=== PATIENT | female | born 1955 | race Caucasian/White ===

== ENCOUNTER → 2017-01-29 | Outpatient (CLI) | payer OTHER ==
[2017-01-29 13:38] LABS: Anion Gap 9 mmol/L; Blood Urea Nitrogen 14 mg/dL (7-17); Calcium 9.4 mg/dL (8.4-10.2); Carbon Dioxide 26 mmol/L (22-30); Chloride 104 mmol/L (98-107); Glucose 237 mg/dL (74-99); Non-African American GFR(MDRD) >60 (>60 ml/min/1.73 sqM); Potassium 4.9 mmol/L (3.5-5.1); Sodium 139 mmol/L (137-145)
[2017-01-29 15:13] LABS: Hemoglobin A1C 10.4 % (4.2-6.1)
== END | disposition home or self-care (01) ==
LOC: LABWHC1 12:12
PROVIDERS: ATTEND Internal Medicine
DX: E11.65 Type 2 diabetes mellitus with hyperglycemia (principal)
CPT/HCPCS: 36415; 80048; 83036

== ENCOUNTER → 2017-03-28 | Outpatient (CLI) | payer OTHER ==
[2017-03-28 13:24] LABS: Hemoglobin A1C 10.5 % (4.2-6.1)
[2017-03-28 13:26] LABS: Anion Gap 12 mmol/L; Blood Urea Nitrogen 14 mg/dL (7-17); Carbon Dioxide 26 mmol/L (22-30); Chloride 102 mmol/L (98-107); Glucose 107 mg/dL (74-99); Non-African American GFR(MDRD) 54 (>60 ml/min/1.73 sqM); Potassium 4.1 mmol/L (3.5-5.1); Sodium 140 mmol/L (137-145)
== END | disposition home or self-care (01) ==
LOC: LABWHC1 12:15
PROVIDERS: ATTEND Internal Medicine
DX: E11.65 Type 2 diabetes mellitus with hyperglycemia (principal)
CPT/HCPCS: 36415; 80048; 83036

== ENCOUNTER → 2017-10-13 | Outpatient (CLI) | payer SELFPAY ==
--- NOTE | 2017-10-14 14:28 | MM ---
Reason for exam: screening (asymptomatic). Last mammogram was performed 1 year and 4 months ago. History: Patient is postmenopausal. Physical Findings: A clinical breast exam by your physician is recommended on an annual basis and results should be correlated with mammographic findings. MG Screening Mammo w CAD Bilateral CC and MLO view(s) were taken. Prior study comparison: June 20, 2016, mammogram, performed at [facility]. March 02, 2015, mammogram, performed at [facility]. There are scattered fibroglandular densities. There is chronic nodularity in the right breast. No significant changes when compared with prior studies. ASSESSMENT: Negative, BI-RAD 1 RECOMMENDATION: Routine screening mammogram of both breasts in 1 year.
== END | disposition home or self-care (01) ==
LOC: RADMAMWWP 12:59
PROVIDERS: ATTEND Internal Medicine
DX: Z12.31 Encounter for screening mammogram for malignant neoplasm of breast (principal)
CPT/HCPCS: 77067

== ENCOUNTER 2017-10-28 17:33 | Inpatient (IN) | payer OTHER ==
[2017-10-28 17:55] LABS: Glucose,Whole Blood 183 mg/dL (75-99)
[2017-10-28] MEDS ORDERED: ONDANSETRON 4 MG/2 ML VIAL IVP STA ×2 (18:04→18:05)
[2017-10-28] MEDS ORDERED: MORPHINE SULFATE 4 MG/ML SYRINGE IVP STA ×3 (18:04→20:54)
--- NOTE | 2017-10-28 18:19 | ED ---
General Adult HPI - General Chief complaint: Extremity Injury, Lower Stated complaint: Leg injury/500 pound bale of hay fell on her Time Seen by Provider: 10/28/17 17:57 Source: patient, family, RN notes reviewed Mode of arrival: wheelchair Limitations: physical limitation - History of Present Illness Initial comments: Chief complaint history of present illness is a 62-year-old female brought in by her . the patient and her and several others were loading very heavy large bridget of hay 1 fell from a height of 20 feet are more pushing her forward and causing injury to her left rib cage and right lower leg. Patient denies any loss of consciousness. No head or neck pain. No upper extremity pain. Denies shortness of breath but which takes deep breath or rib hurts. Denies any spinal pain. Denies numbness or tingling down her legs. There was no loss of consciousness. The patient has a heavy work boot , which will need to be cut off for examination. patient be given us permission to cut her boot. He was cutting such a way that he can be possibly repaired. The patient is already receiving IV pain medication4 mg of morphine and Zofran. - Related Data Home Medications Medication Instructions Recorded Confirmed Aspirin 325 mg PO DAILY 10/04/14 10/28/17 Metoprolol Tartrate [Lopressor] 25 mg PO DAILY 10/04/14 10/28/17 metFORMIN HCL [Glucophage] 1,000 mg PO DAILY 10/04/14 10/28/17 Insulin Glargine,Hum.rec.anlog 30 unit SQ HS 10/28/17 10/28/17 [Basaglar Kwikpen U-100] Omeprazole [PriLOSEC] 20 mg PO AC-BID 10/28/17 10/28/17 PARoxetine HCL [Paxil] 40 mg PO DAILY 10/28/17 10/28/17 Allergies Allergy/AdvReac Type Severity Reaction Status Date / Time No Known Allergies Allergy Verified 10/28/17 18:42 Review of Systems ROS Statement: Those systems with pertinent positive or pertinent negative responses have been documented in the HPI. review of systems. No headache or visual acuity changes denies neck or spinal pain. Has discomfort to her left rib cage which does increase with deep breathing. No abdominal pain denies nausea or vomiting. Denies pelvic pain. Denies knee pain. She has pain to her distal right tib-fib. There was no loss of consciousness. Neurologically intact. All systems were reviewed. Past medical problems insulin-dependent diabetes mellitus TIA years ago and hypertension. Patient surgeries include tubal ligation. Family history significant for a father with prostate cancer in her mother skin cancer. Patient denies any ALLERGIES she quit smoking drinking 15 years ago. ROS Other: All systems not noted in ROS Statement are negative. Past Medical History Past Medical History: Diabetes Mellitus, GERD/Reflux, Hypertension Additional Past Medical History / Comment(s): PROB W/ EATING, SWALLOWING SOME FOODS D/T ESOPHAGEAL STRICTURE R/T SCAR TISSUE FROM GERD. History of Any Multi-Drug Resistant Organisms: None Reported Past Surgical History: Tubal Ligation Additional Past Surgical History / Comment(s): EGD X 3 last-12/08/14 Past Anesthesia/Blood Transfusion Reactions: Motion Sickness Past Psychological History: Depression Smoking Status: Former smoker Past Alcohol Use History: None Reported Past Drug Use History: None Reported - Past Family History Father Family Medical History: Cancer General Exam - General Exam Comments Initial Comments: General: The patient is awake and alert, she had a large developing a come down pushing her forward, complaining of left rib pain and distal right tib-fib pain.. Eye: Pupils are equal, round and reactive to light, extra-ocular movements are intact ; there is normal conjunctiva bilaterally. No signs of icterus. Ears, nose, mouth and throat: There are moist mucous membranes and no oral lesions. Neck: The neck is supple, there is no tenderness . Cardiovascular: There is a regular rate and rhythm. No murmur, rub or gallop is appreciated. Respiratory: patient complains of left sided rib pain. No spinal pain. Lungs are clear to auscultation at this time. Gastrointestinal: Soft, non-distended, non-tender abdomen without masses or organomegaly noted. There is no rebound or guarding present. No CVA tenderness. Bowel sounds are unremarkable. Back: There is no tenderness to palpation in the midline. There is no obvious deformity. No rashes noted. patient is not complaining of back pain chest left rib cage pain at this time. Musculoskeletal: patient's boot was removed showing a dislocation right ankle. Neurovascular status appears to be intact to the foot. Neurological: no evidence of any neuro deficits. Skin: Skin is warm and dry and no rashes or lesions are noted. Limitations: physical limitation Course Vital Signs 10/28/17 10/28/17 10/28/17 17:38 18:31 19:00 Temperature 98.1 F Pulse Rate 104 H 91 102 H Respiratory 20 18 18 Rate Blood Pressure 152/67 158/68 165/74 O2 Sat by Pulse 98 96 100 Oximetry 10/28/17 10/28/17 10/28/17 19:05 19:10 19:14 Temperature Pulse Rate 100 98 104 H Respiratory 18 18 18 Rate Blood Pressure 163/73 171/78 186/79 O2 Sat by Pulse 100 100 100 Oximetry 10/28/17 19:17 Temperature Pulse Rate 101 H Respiratory 18 Rate Blood Pressure 136/60 O2 Sat by Pulse 98 Oximetry Procedures - Procedures Initial comment: Procedure; conscious sedation. Permission was obtained for conscious sedation. The patient was told risks and benefits. a timeout was taken the right dislocated ankle was idetified. At bedside with the physician , 2 nurses and respiratory. Patient was monitored, on oxygen. Ambu bag in crash cart at bedside. 16 mg of etomidate was administered. Within several minutes the patient was sedated. The comminuted right dislocated ankle was reduced. It was then immobilized with OCL splints. The first for by 32nd for by 30 sugar tong fashion. Neurovascular foot maintained intact before and after procedure. Patient was monitored until she was fully awake and able to answer questions. And was going to go for x-rays or post reduction and the rest of her x-rays. Total length of conscious sedation was [address] Liao Medical Decision Making - Medical Decision Making medical decision making; the patient is here because a large they'll of hay fell forcing her forward. Chief complaint is left rib cage pain and right ankle pain. There is no loss of consciousness. Trauma examination from head to toe is done. Patient received IV pain medication within 10 minutes of around emergency room. X-rays were performed including a chest x-ray and it was reported by radiology as a cardiac silhouette is not enlarged. The mediastinal pleura silhouettes are unremarkable. The skeletal structures are intact without focal findings. Soft tissues are unremarkable patient process. As read by Dr. Dorian moran radiologist reviewed the x-rays of the ankle and his findings ; imaging included the ankle, hindfoot, midfoot. There are complex fractures involving the distal tibia and fibula, with overriding with complete dislocation at the tibiotalar articulation. Impression complex fracture dislocation. As read by Dr. Master Mcmanus Postreduction x-ray of the ankle shows trimalleolar fracture with comminuted fragments.radiologist reviewed the x-ray his findings are postreduction 3 views. Imaging was obtained through a cast which limits visualization somewhat. There is marked interval improvement in the alignment pattern at the ankle. As read by Dr. Master Mcmanus Left rib series was done and reviewed by radiologist his findings are there is no fracture or malalignment. There is no pneumothorax. No pleural effusion. Soft tissues and lungs are unremarkable. No acute process X-ray of the pelvis was done reviewed by radiologist his findings as no fracture or malalignment. Soft tissues are unremarkable. Impression no acute process. As read by Dr. Master Mcmanus I discussed the case Dr. Gomez height off on-call orthopedic surgeon. Patient be admitted his service for observation for pain management. Further evaluation after admission. - Lab Data Lab Results 10/28/17 Range/Units 17:51 POC Glucose (mg/dL) 183 H (75-99) mg/dL POC Glu Grinder Needle Tip ID Sabrina Whitaker Disposition Clinical Impression: Closed fracture dislocation of right ankle Disposition: ADMITTED IP TO THIS HOSP Condition: Serious Referrals: Adalberto Sarah MD [Primary Care Provider] - 1-2 days
[2017-10-28] MEDS ORDERED: SODIUM CHLORIDE 0.9% 500 ML IV ONE (18:29)
[2017-10-28] MEDS ORDERED: SODIUM CHLORIDE 0.9% 1,000 ML IV SCH ×2 (18:30→18:45)
[2017-10-28] MEDS ORDERED: ETOMIDATE 2 MG/ML 10 ML VIAL IVP STA (18:30)
[2017-10-28] MEDS ORDERED: ONDANSETRON 4 MG/2 ML VIAL IVP PRN ×2 (18:41→20:57)
[2017-10-28] MEDS ORDERED: NALOXONE 0.4 MG/ML 1 ML VIAL IV PRN ×2 (18:41→20:57)
[2017-10-28] MEDS ORDERED: ACETAMINOPHEN TAB 325 MG TAB PO PRN (18:41)
--- NOTE | 2017-10-28 18:44 | XR ---
EXAMINATION: XR chest 1V portable DATE AND TIME: 10/28/2017 6:32 PM ORDERING PROVIDER: Matthew Liao MD CLINICAL INDICATION: Pain TECHNIQUE: AP upright portable COMPARISON: None. DESCRIPTION: EKG leads noted. The lungs are clear. The pleural spaces are negative. The cardiac silhouette is not enlarged. The mediastinal and pleural silhouettes are unremarkable. The skeletal structures are intact without focal findings. The soft tissues are unremarkable. IMPRESSION: NO ACUTE PROCESS.
--- NOTE | 2017-10-28 18:55 | XR ---
PROCEDURE: XR tibia fibula RT DATE AND TIME: 10/28/2017 6:32 PM REFERRING PHYSICIAN: Matthew Liao MD CLINICAL INDICATION: [facility], Pain TECHNIQUE: Department protocol. COMPARISON: None FINDINGS: 4 views were obtained from the knee to the ankle. The knee is unremarkable. The proximal an d mid tibia and fibula are intact. There is a fracture dislocation at the right ankle. IMPRESSION: COMPLEX FRACTURE DISLOCATION AT THE RIGHT ANKLE.
--- NOTE | 2017-10-28 18:59 | XR ---
PROCEDURE: XR ankle complete RT, 3 views DATE AND TIME: 10/28/2017 6:50 PM REFERRING PHYSICIAN: Matthew Liao MD CLINICAL INDICATION: [facility], Pain TECHNIQUE: Department protocol. COMPARISON: None FINDINGS: Imaging included the ankle, hindfoot, and midfoot. There are complex fractures involving th e distal tibia and fibula, with override and with complete dislocation at the tibiotalar articulation . IMPRESSION: COMPLEX FRACTURE DISLOCATION
--- NOTE | 2017-10-28 20:06 | XR ---
PROCEDURE: XR pelvis AP view DATE AND TIME: 10/28/2017 7:59 PM REFERRING PHYSICIAN: Matthew Liao MD CLINICAL INDICATION: [facility], trauma exam TECHNIQUE: Department protocol. COMPARISON: None FINDINGS: There is no fracture or malalignment. The soft tissues are unremarkable. IMPRESSION: NO ACUTE PROCESS.
--- NOTE | 2017-10-28 20:09 | XR ---
PROCEDURE: XR ankle complete RT, 3 views DATE AND TIME: 10/28/2017 7:55 PM REFERRING PHYSICIAN: Matthew Liao MD CLINICAL INDICATION: [facility], Post reduction TECHNIQUE: Department protocol. COMPARISON: Same day ankle radiographs. FINDINGS: Post reduction 3 views. Imaging was obtained through a cast which limits visualization some what. There is marked interval improvement in the alignment pattern at the ankle. IMPRESSION: Postreduction 3 views.
--- NOTE | 2017-10-28 20:10 | XR ---
PROCEDURE: XR ribs LT 4 views DATE AND TIME: 10/28/2017 7:59 PM REFERRING PHYSICIAN: Matthew Liao MD CLINICAL INDICATION: [facility], Pain TECHNIQUE: Department protocol. COMPARISON: None FINDINGS: There is no fracture or malalignment. There is no pneumothorax. No pleural effusion. The so ft tissues and lungs are unremarkable. IMPRESSION: NO ACUTE PROCESS.
[2017-10-28] MEDS ORDERED: FAMOTIDINE 20 MG TAB PO SCH (21:00)
[2017-10-28 21:31] LABS: Basophils # (A) 0.1 k/uL (0-0.2); Basophils % (A) 1 %; Eosinophils # (A) 0.6 k/uL (0-0.7); Eosinophils % (A) 7 %; HCT 36.9 % (34.0-46.0); HGB 12.5 gm/dL (11.4-16.0); Lymphocytes # (A) 2.1 k/uL (1.0-4.8); Lymphocytes % (A) 24 %; MCH 28.6 pg (25.0-35.0); MCHC 33.9 g/dL (31.0-37.0); MCV 84.5 fL (80.0-100.0); Mean Platelet Volume 8.1; Monocytes # (A) 0.5 k/uL (0-1.0); Monocytes % (A) 5 %; Neutrophils # (A) 5.3 k/uL (1.3-7.7); Neutrophils % (A) 62 %; Platelet Count 352 k/uL (150-450); RBC 4.37 m/uL (3.80-5.40); RDW 14.2 % (11.5-15.5); WBC 8.6 k/uL (3.8-10.6)
[2017-10-28 21:50] LABS: Albumin 4.3 g/dL (3.5-5.0); Calcium 9.7 mg/dL (8.4-10.2); Potassium 4.5 mmol/L (3.5-5.1); Total Bilirubin 0.4 mg/dL (0.2-1.3); Total Protein 7.2 g/dL (6.3-8.2)
[2017-10-28 21:55] VITALS: BMI 29.9
[2017-10-28] MEDS: FAMOTIDINE 20 MG TAB PO SCH ×2 (22:11→23:42)
[2017-10-28] MEDS: SODIUM CHLORIDE 0.9% 1,000 ML IV SCH (23:45)
[2017-10-29] MEDS: MORPHINE SULFATE 4 MG/ML SYRINGE IV PRN ×3 (00:10→10:40)
[2017-10-29] MEDS ORDERED: metFORMIN 500 MG TAB PO SCH (07:30)
[2017-10-29 08:07] LABS: Glucose,Whole Blood 168 mg/dL (75-99)
[2017-10-29] MEDS: FAMOTIDINE 20 MG TAB PO SCH (08:11)
[2017-10-29] MEDS: PARoxetine 20 MG TAB PO SCH (08:11)
[2017-10-29] MEDS: INSULIN ASPART 100 UNIT/ML 1 ML 10 ML VIAL SQ SCH ×3 (08:11→21:30)
--- NOTE | 2017-10-29 08:38 | P.HPOR ---
History of Present Illness H&P Date: 10/29/17 This is a 62-year-old female who is admitted for right ankle injury. Patient states she was moving large bridget of hay on 10/28/2017 and one fell on top of her causing her to fall. Patient states after this she was unable to get up on her own and her family drove her to the emergency room. Patient sustained a fracture dislocation of the right ankle which was reduced in the emergency room and splinted. Today patient states her pain is under control. Patient does complain of some pain to the left side ribs when she takes deep breaths. Patient denies any fever/chills, pain of the head or neck, numbness, weakness, tingling, abdominal pain, shortness of breath or chest pain. Review of Systems See HPI. Past Medical History Past Medical History: Diabetes Mellitus, GERD/Reflux, Hypertension Additional Past Medical History / Comment(s): PROB W/ EATING, SWALLOWING SOME FOODS D/T ESOPHAGEAL STRICTURE R/T SCAR TISSUE FROM GERD. History of Any Multi-Drug Resistant Organisms: None Reported Past Surgical History: Tubal Ligation Additional Past Surgical History / Comment(s): EGD X 3 last-12/08/14 Past Anesthesia/Blood Transfusion Reactions: Motion Sickness Past Psychological History: Depression Smoking Status: Former smoker Past Alcohol Use History: None Reported Past Drug Use History: None Reported - Past Family History Father Family Medical History: Cancer Medications and Allergies Home Medications Medication Instructions Recorded Confirmed Type Aspirin 325 mg PO DAILY 10/04/14 10/28/17 History Metoprolol Tartrate [Lopressor] 25 mg PO DAILY 10/04/14 10/28/17 History metFORMIN HCL [Glucophage] 1,000 mg PO DAILY 10/04/14 10/28/17 History Insulin Glargine,Hum.rec.anlog 30 unit SQ HS 10/28/17 10/28/17 History [Basaglar Kwikpen U-100] Omeprazole [PriLOSEC] 20 mg PO AC-BID 10/28/17 10/28/17 History PARoxetine HCL [Paxil] 40 mg PO DAILY 10/28/17 10/28/17 History Allergies Allergy/AdvReac Type Severity Reaction Status Date / Time No Known Allergies Allergy Verified 10/28/17 18:42 Physical Examination On exam patient is alert and oriented 3 and in no acute distress. Right lower extremity with splint clean, dry and intact. Capillary refill is normal at less than 2 seconds. Sensation intact. Neurovascular status and circulatory status are intact. There is no tenderness to palpation of the head, neck, bilateral upper extremities, or left lower extremity. Patient has had some pain of the left- side ribs. Results X-rays of the right ankle show a fracture dislocation of the right ankle. Postreduction films show improved alignment of right ankle fracture. X-rays of the right tib-fib show complex fracture dislocation of the right ankle. X-rays of the pelvis are negative for any fracture. X-rays of the left ribs are negative for fracture. Chest x-ray is negative for any acute process. - Labs Labs: Abnormal Lab Results - Last 24 Hours (Table) 10/28/17 10/28/17 10/29/17 Range/Units 17:51 20:51 08:00 BUN 18 H (7-17) mg/dL Creatinine 1.14 H (0.52-1.04) mg/dL Glucose 175 H (74-99) mg/dL POC Glucose (mg/dL) 183 H 168 H (75-99) mg/dL H & H 10/28/17 Range/Units 20:51 Hgb 12.5 (11.4-16.0) gm/dL Hct 36.9 (34.0-46.0) % Result Diagrams: 10/28/17 20:51 10/28/17 20:51 Assessment and Plan (1) Closed fracture dislocation of right ankle Current Visit: Yes Status: Acute Code(s): S82.891A - OTH FRACTURE OF RIGHT LOWER LEG, INIT FOR CLOS FX SNOMED Code(s): 929355376 Plan: #1. Keep splint clean, dry and intact. #2. Patient is to be NPO. #3. Patient is to remain nonweightbearing to the right lower extremity. #4. Keep right lower extremity elevated for swelling. #5. Awaiting medical clearance #6. ORIF of right ankle scheduled for today pending medical clearance and consent.
[2017-10-29] MEDS ORDERED: METOPROLOL TARTRATE 25 MG TAB PO SCH ×2 (09:00)
--- NOTE | 2017-10-29 09:26 | P.CONS ---
History of Present Illness - Reason for Consult Consult date: 10/29/17 preop medical clearance Requesting physician: Jason Mijares - Chief Complaint right ankle fracture - History of Present Illness 62-year-old female with past history of hypertension, diabetes mellitus, and GERD. 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 This was not associated with any nausea vomiting, dizziness, lightheadedness, any palpitations, no open wounds or bleeding that were visible initially. Patient was wearing large heavy work boots which could not removed at the field. Patient family drove the patient to the hospital where she was diagnosed with fracture dislocation of the right ankle. Closed reduction was done in the ED under conscious sedation. Patient is admitted to orthopedics who requested the consult for preop medical clearance. Patient denies any recent history of congestive heart failure symptoms, heart attacks, palpitations, syncope, or seizures. Patient does have history of diabetes, and recalls remote history of possible TIA. Denies any history of coronary artery disease, CK D, or CHF. 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 Patient describes her health as in good status. Currently patient laying comfortable in bed not in any acute distress still reports some sharp left thoracic back pain with deep breaths and movement. She also reports pain in her right ankle but controlled for now. Review of Systems Constitutional: Patient denies fever, denies chills, denies night sweating, denies significant weight changes Eyes: Patient denies visual changes, denies eye pain ENT: Patient denies ear pain, denies rhinorrhea, denies sore throat Cardiovascular: Patient denies chest pain, denies exertional dyspnea, denies peripheral leg edema, denies orthopnea, denies paroxysmal nocturnal dyspnea Respiratory:Patient denies cough, denies wheezing, denies shortness of breath Gastrointestinal: Patient denies diarrhea, denies constipation, denies nausea , denies vomiting, denies abdominal pain Genitourinary: Patient denies dysuria, denies hematuria, denies changes in urinary habits, denies genital lesions Musculoskeletal: Patient denies muscle pain, patient reports left thoracic back pain since the injury, and right ankle pain Psychiatric: Patient denies changes in mood or memory, denies suicidal ideation, denies anxiety Endocrine: Patient denies heat intolerance, denies cold intolerance, denies excessive thirst, denies polyuria Neurological: Patient denies focal neurologic deficits, denies weakness, denies numbness, denies tingling Hem/Lymphatic: Patient denies bleeding tendency, denies bruising, denies swollen lymph glands Allergic/Immun: Patient denies recent allergic reactions Skin: Patient denies rashes, denies pruritis, denies ulcers Past Medical History Past Medical History: Diabetes Mellitus, GERD/Reflux, Hypertension Additional Past Medical History / Comment(s): PROB W/ EATING, SWALLOWING SOME FOODS D/T ESOPHAGEAL STRICTURE R/T SCAR TISSUE FROM GERD. History of Any Multi-Drug Resistant Organisms: None Reported Past Surgical History: Tubal Ligation Additional Past Surgical History / Comment(s): EGD X 3 last-12/08/14 Past Anesthesia/Blood Transfusion Reactions: Motion Sickness Past Psychological History: Depression Smoking Status: Former smoker Past Alcohol Use History: None Reported Past Drug Use History: None Reported - Past Family History Father Family Medical History: Cancer Medications and Allergies Home Medications Medication Instructions Recorded Confirmed Type Aspirin 325 mg PO DAILY 10/04/14 10/28/17 History Metoprolol Tartrate [Lopressor] 25 mg PO DAILY 10/04/14 10/28/17 History metFORMIN HCL [Glucophage] 1,000 mg PO DAILY 10/04/14 10/28/17 History Insulin Glargine,Hum.rec.anlog 30 unit SQ HS 10/28/17 10/28/17 History [Basaglar Kwikpen U-100] Omeprazole [PriLOSEC] 20 mg PO AC-BID 10/28/17 10/28/17 History PARoxetine HCL [Paxil] 40 mg PO DAILY 10/28/17 10/28/17 History Allergies Allergy/AdvReac Type Severity Reaction Status Date / Time No Known Allergies Allergy Verified 10/28/17 18:42 Physical Exam Vitals: Vital Signs Temp Pulse Pulse Resp BP BP Pulse Ox 10/29/17 07:00 99.2 F 110 H 18 138/63 96 10/29/17 00:50 98.8 F 109 H 16 120/75 96 10/28/17 21:30 97.0 F L 112 H 17 163/83 94 L 10/28/17 21:25 105 H 20 132/60 91 L 10/28/17 20:53 99 18 133/60 97 10/28/17 19:17 101 H 18 136/60 98 10/28/17 19:14 104 H 18 186/79 100 10/28/17 19:10 98 18 171/78 100 10/28/17 19:05 100 18 163/73 100 10/28/17 19:00 102 H 18 165/74 100 10/28/17 18:31 91 18 158/68 96 10/28/17 17:38 98.1 F 104 H 20 152/67 98 Intake and Output 10/28/17 10/29/17 10/29/17 22:59 06:59 14:59 Intake Total 650 Balance 650 Intake: Amount of Fluid Infused ( 650 ml) Other: # Voids 1 Weight 81.647 kg Constitutional: No acute distress, conversant, pleasant Eyes: Anicteric sclerae, moist conjunctiva, no lid-lag Pupils equal round reactive to light ENMT: NC/AT Oropharynx clear, no erythema, exudates Patient has large kissing tonsils Neck: Supple, FROM, no masses, or JVD No carotid bruits No thyromegaly Lungs: Clear to auscultation Clear to percussion Normal respiratory effort, no accessory muscle use Cardiovascular: Heart sounds tachycardic but regular rhythm , audible S1- S2 no added sounds No murmurs, gallops, or rubs No peripheral edema Abdominal: Soft Nontender, no guarding, rebound or rigidity Abdomen moving with respiration Normoactive bowel sounds No hepatomegaly, No splenomegaly No palpable mass No abdominal wall hernia noted Skin: Normal temperature, tone, texture, turgor No induration No subcutaneous nodules No rash, lesions No ulcers Extremities: Right lower extremity and surgical dressing and splint. Capillary refill is immediate over the right big toe No digital cyanosis No clubbing Pedal pulses intact and symmetrical Radial pulses intact and symmetrical No calf tenderness Psychiatric: Alert and oriented to person, place and time Appropriate affect fair judgment Neuro Muscles Strength 5/5 in all 4 extremities (except for limited exam over the right lower extremity due to splint) Sensation to light touch grossly present throughout Cranial nerves II-XII grossly intact No focal sensory deficits Lymphatics: no palpable cervical or supraclavicular , or inguinal lymph nodes Results CBC & Chem 7: 10/28/17 20:51 10/28/17 20:51 Labs: Abnormal Lab Results - Last 24 Hours (Table) 10/28/17 10/28/17 10/29/17 Range/Units 17:51 20:51 08:00 BUN 18 H (7-17) mg/dL Creatinine 1.14 H (0.52-1.04) mg/dL Glucose 175 H (74-99) mg/dL POC Glucose (mg/dL) 183 H 168 H (75-99) mg/dL Assessment and Plan (1) Closed fracture dislocation of right ankle Narrative/Plan: Due to accidental injury Management per orthopedics Pain control Current Visit: Yes Status: Acute Code(s): S82.891A - OTH FRACTURE OF RIGHT LOWER LEG, INIT FOR CLOS FX SNOMED Code(s): 044398082 (2) Diabetes mellitus Narrative/Plan: Continue with insulin sliding scale Hold oral hypoglycemics Resume long-acting insulin postop Check A1c Current Visit: Yes Status: Acute Code(s): E11.9 - TYPE 2 DIABETES MELLITUS WITHOUT COMPLICATIONS SNOMED Code(s): 09054148 (3) Hypertension Narrative/Plan: Blood pressure is controlled for now Continue with metoprolol Current Visit: Yes Status: Acute Code(s): I10 - ESSENTIAL (PRIMARY) HYPERTENSION SNOMED Code(s): 88424292 (4) GERD (gastroesophageal reflux disease) Narrative/Plan: Continue with PPI Current Visit: Yes Status: Acute Code(s): K21.9 - GASTRO-ESOPHAGEAL REFLUX DISEASE WITHOUT ESOPHAGITIS SNOMED Code(s): 957723158 (5) DVT prophylaxis Narrative/Plan: SCDs for now pending surgical intervention Pharmacologic anticoagulation prophylaxis postop per orthopedic Current Visit: Yes Status: Acute Code(s): KBJ7388 - SNOMED Code(s): 791933161 (6) Depression Narrative/Plan: continue paxil Current Visit: Yes Status: Acute Code(s): F32.9 - MAJOR DEPRESSIVE DISORDER , SINGLE EPISODE, UNSPECIFIED SNOMED Code(s): 47495582 Plan: Preoperative medical clearance This is 62-year-old female with history of hypertension and diabetes mellitus, presented due to accidental injury resulted in severe pain in her right leg later found to have dislocated fracture of the right ankle. Patient denies any recent history of heart attack, congestive heart failure symptoms, palpitations , syncope, seizures, arrhythmia. Patient denies any history of CK D, CHF, or CAD. She does have history of diabetes mellitus, and possible remote TIA questionable. 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 Patient is planned to go for orthopedic surgery for ORIF of her right ankle dislocated fracture. This is of intermediate risk. Patient overall medical history puts her at low perioperative cardiovascular risk for complications but acceptable and can proceed to surgery, patient to continue metoprolol. Hold oral hypoglycemic agents. Patient labs were reviewed and unremarkable, except for slightly elevated creatinine at 1.1, continue with IV fluid hydration with normal saline EKG is still pending we'll review preop. Thank you for allowing us to participate in the care of this patient. Do not hesitate to contact us with questions. Someone can be reached from the [facility] hospitalist group at all hours of the day at [phone].
[2017-10-29] MEDS: SODIUM CHLORIDE 0.9% 1,000 ML IV SCH (09:33)
[2017-10-29 11:50] LABS: Glucose,Whole Blood 140 mg/dL (75-99)
[2017-10-29 15:23] LABS: Glucose,Whole Blood 127 mg/dL (75-99)
[2017-10-29] MEDS ORDERED: IV FLUID CONTINUATION 1,000 ML IV ONE (15:32)
[2017-10-29] MEDS ORDERED: ONDANSETRON 4 MG/2 ML VIAL IVP ONE (15:49)
[2017-10-29] MEDS ORDERED: DEXAMETHASONE SOD PHOSPHATE 10 MG/ML 1 ML VIAL IV ONE (15:52)
[2017-10-29] MEDS ORDERED: DIAZEPAM 5 MG TAB PO PRN ×2 (16:12)
[2017-10-29] MEDS ORDERED: hydrOXYzine PAMOATE 25 MG CAP PO PRN (16:12)
[2017-10-29] MEDS ORDERED: MAGNESIUM HYDROXIDE 2,400 MG/10 ML CUP PO PRN (16:12)
[2017-10-29] MEDS ORDERED: NALOXONE 0.4 MG/ML 1 ML VIAL IV PRN (16:12)
[2017-10-29] MEDS ORDERED: ceFAZolin IN SWFI 2 GM/20 ML SYRINGE IVP STA (16:19)
[2017-10-29] MEDS ORDERED: LIDOCAINE 1% INJ 10MG/ML (20 ML MDV) ONE (17:04)
[2017-10-29] MEDS ORDERED: MIDAZOLAM 2 MG/2 ML VIAL ONE (17:04)
[2017-10-29] MEDS ORDERED: fentaNYL (PF) 50 MCG/ML 2 ML AMP ONE (17:04)
[2017-10-29] MEDS ORDERED: PROPOFOL 10 MG/ML 20 ML VIAL IV ONE (17:04)
[2017-10-29] MEDS ORDERED: PHENYLEPHRINE-0.9% NACL SYG 1 MG/10 ML SYRINGE ONE (17:04)
[2017-10-29] MEDS ORDERED: MORPHINE ORAL SOLN 10 MG/5 ML CUP PO PRN (17:08)
[2017-10-29] MEDS ORDERED: LACTATED RINGERS 1,000 ML IV ONE (17:30)
[2017-10-29] MEDS ORDERED: ceFAZolin 1,000 MG in SODIUM CHLORIDE 0.9% 1,000 ML IRRIGATION ONE (17:35)
--- NOTE | 2017-10-29 18:07 | P.OP ---
Date of Procedure: 10/29/17 Preoperative Diagnosis: Trimalleolar fracture dislocation right ankle Postoperative Diagnosis: Trimalleolar fracture dislocation right ankle Procedure(s) Performed: Open reduction and internal fixation of the right distal fibula and medial malleolus Implants: Synthes small fragment set Anesthesia: spinal Surgeon: Jason Mijares Folder Gluer Operator #1: Domi Saunders Estimated Blood Loss (ml): 20 Pathology: none sent Condition: stable Disposition: PACU Indications for Procedure: This is a 62-year-old female that slipped and sustained a fracture dislocation of her right ankle yesterday. She was seen by the emergency department, and had her ankle fracture dislocation reduced and splinted. Patient was admitted to the hospital for observation. After reviewing the x-rays and discussing the treatment options with the patient, I recommended open reduction and internal fixation of right distal fibula and medial malleolus. Informed consent was obtained. Operative Findings: The operative findings are consistent with a trimalleolar fracture dislocation of the right ankle. Description of Procedure: The patient was seen and evaluated in the preoperative area. The consent was reviewed and the operative site was marked with a skin marker. Patient was then brought to the operating room and given 2 g of Ancef by the anesthesia department. A general anesthetic was then administered by the anesthesia department. Tourniquet was placed on the upper thigh and the lower extremity was then prepped and draped in the usual sterile fashion. A universal timeout was then performed which confirmed the patient's name, surgical site, ALLERGIES, and consent. The lower extremity was then exsanguinated, and the tourniquet inflated to 250 mmHg. A standard lateral incision was then performed over the distal fibula with the skin and subcutaneous tissue sharply incised with the incision centered over the fracture site. Tissues were carefully dissected down to the fracture site. The fracture hematoma was evacuated and the fracture was then reduced with bone reducing clamps. Fluoroscopic x-rays confirmed reduction of the fracture and orthodox of the ankle mortise. Next, an anterior to posterior lag screw was then placed by over drilling the proximal hole. After the anterior to posterior lag screw was placed, the bone clamp was able to be removed and the fracture was held stable. Next, a one third semitubular plate was pre-bent for the patient's anatomy, and placed on the lateral aspect of the distal fibula. Screws were then were placed both proximally and distally in order to fixate the plate to the distal fibula. After all the screws then placed, final fluoroscopic x-rays confirmed reduction of the fracture, orthodox of the ankle mortise, and placement of the plate and screws. Attention was then directed to the medial malleolus. An incision was made over the fracture site with care taken to avoid the saphenous vein. The fracture was readily visualized, and reduced with a K wire. A 4.0 cannulated screws then placed over the K wire. Again, fluoroscopic x-rays confirmed reduction of the fracture and placement of the screw. The tourniquet was then released and hemostasis was obtained. The incision site was then irrigated with antibiotic solution. Wound was then closed with 2- 0 Vicryl for the subcutaneous tissue and negin for the skin. 20 cc of quarter percent plain Marcaine were then injected about the surgical site. Sterile dressings were applied, and a well-padded and molded posterior splint was placed. Patient was then transported to the recovery room in stable condition. The auction assistant ELI Emmanuel was required due to the complexity of the surgery and the need for a skilled information technology assistant.
--- NOTE | 2017-10-29 18:18 | FL ---
EXAMINATION TYPE: FL guidance operating room, XR ankle limited RT DATE OF EXAM: 10/29/2017 CLINICAL HISTORY: Right ankle fracture. TECHNIQUE: Fluoroscopy. Intraoperative limited views right ankle. COMPARISON: Right ankle x-ray from yesterday.. FINDINGS: Fluoroscopic guidance was provided during open reduction internal fixation procedure perfo rmed by Dr. Mijares. A total of 16 seconds of fluoroscopic time was utilized during the procedure a nd 2 spot intraoperative images are acquired. Intraoperative images acquired show placement of single screw through fracture deformity medial malle olus and lateral fixating plate with additional fixating screws through fracture deformity of lateral malleolus. Satisfactory alignment is seen after reduction and fixation. IMPRESSION: As Above.
[2017-10-29] MEDS ORDERED: DILTIAZEM 125 MG in SODIUM CHLORIDE 0.9% 100 ML IV SCH (19:15)
[2017-10-29 20:22] LABS: Glucose,Whole Blood 185 mg/dL (75-99)
[2017-10-29 20:44] LABS: Basophils % (A) 0 %; Eosinophils # (A) 0.1 k/uL (0-0.7); Eosinophils % (A) 1 %; HCT 36.1 % (34.0-46.0); HGB 11.2 gm/dL (11.4-16.0); Hypochromasia Slight; Lymphocytes # (A) 0.6 k/uL (1.0-4.8); Lymphocytes % (A) 9 %; MCH 27.3 pg (25.0-35.0); MCHC 31.1 g/dL (31.0-37.0); MCV 87.8 fL (80.0-100.0); Mean Platelet Volume 8.1; Monocytes # (A) 0.2 k/uL (0-1.0); Monocytes % (A) 2 %; Neutrophils # (A) 6.6 k/uL (1.3-7.7); Neutrophils % (A) 88 %; Platelet Count 238 k/uL (150-450); RBC 4.11 m/uL (3.80-5.40); RDW 14.4 % (11.5-15.5); WBC 7.5 k/uL (3.8-10.6)
[2017-10-29 20:45] LABS: Glucose,Whole Blood 198 mg/dL (75-99)
[2017-10-29 21:32] LABS: Hemoglobin A1C 6.9 % (4.0-6.0)
[2017-10-30] MEDS: INSULIN ASPART 100 UNIT/ML 1 ML 10 ML VIAL SQ SCH ×5 (00:13→23:21)
--- NOTE | 2017-10-30 00:22 | P.CNNES ---
History of Present Illness Consult date: 10/29/17 Reason for Consult: Patient admitted with right ankle fracture and leg weakness. 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 Apparently a bale of hay weighing over 500 pounds fell forwards and pushed her from behind. This caused her to fall forwards and causing some injury to the left side of her rib cage. She also landed onto her right lower foot and was trapped under the bale of hay. She was extracted and was complaining of severe right ankle pain. She did not have any loss of consciousness and did not strike her head. The patient did not expanse any lightheadedness or dizziness following this accident. She was wearing very large heavy work boots which could not be removed at the field. The family drove her to the hospital immediately and she was diagnosed with fracture dislocation of the right ankle. Closed reduction was completed in the emergency room under conscious sedation. She was admitted to the orthopedic service and was taken to the OR this evening for surgical treatment. She did show x-ray findings for a trimalleolar fracture with comminuted fragments. Patient underwent successful orthopedic surgery. Apparently while postoperative today she developed new onset of atrial fibrillation. She was transferred to the selective care floor for further management. The patient apparently did not experience any weakness in her left leg. She does complain of left rib pain and discomfort in the thoracic region of the spine. She didn't undergo a series of x-rays in the emergency room but there was no x-ray done of the thoracic spine. We would recommend plain x-ray of the thoracic spine with 2 views to be done tomorrow morning. Patient's neurological examination at this time is nonfocal. She has no evidence of radiculopathy in the either leg at this time. She is being treated for new onset of atrial fibrillation and we will await further recommendations from cardiology. Neurology is now been consulted for further evaluation and recommendations. Review of Systems Constitutional: Denies chills, Denies fever Eyes: denies blurred vision, denies pain Ears, nose, mouth and throat: Denies headache, Denies sore throat Cardiovascular: Denies chest pain, Denies shortness of breath Respiratory: Denies cough Gastrointestinal: Denies abdominal pain, Denies diarrhea, Denies nausea, Denies vomiting Genitourinary: Denies dysuria, Denies hematuria Musculoskeletal: Denies myalgias Integumentary: Denies pruritus, Denies rash Neurological: Reports paresthesias, Denies numbness, Denies weakness Psychiatric: Denies anxiety, Denies depression Endocrine: Denies fatigue, Denies weight change Past Medical History Past Medical History: Diabetes Mellitus, GERD/Reflux, Hypertension Additional Past Medical History / Comment(s): PROB W/ EATING, SWALLOWING SOME FOODS D/T ESOPHAGEAL STRICTURE R/T SCAR TISSUE FROM GERD. History of Any Multi-Drug Resistant Organisms: None Reported Past Surgical History: Tubal Ligation Additional Past Surgical History / Comment(s): EGD X 3 last-12/08/14 Past Anesthesia/Blood Transfusion Reactions: Motion Sickness Past Psychological History: Depression Smoking Status: Former smoker Past Alcohol Use History: None Reported Past Drug Use History: None Reported - Past Family History Father Family Medical History: Cancer Medications and Allergies Home Medications Medication Instructions Recorded Confirmed Type Aspirin 325 mg PO DAILY 10/04/14 10/28/17 History Metoprolol Tartrate [Lopressor] 25 mg PO DAILY 10/04/14 10/28/17 History metFORMIN HCL [Glucophage] 1,000 mg PO DAILY 10/04/14 10/28/17 History Insulin Glargine,Hum.rec.anlog 30 unit SQ HS 10/28/17 10/28/17 History [Basaglar Kwikpen U-100] Omeprazole [PriLOSEC] 20 mg PO AC-BID 10/28/17 10/28/17 History PARoxetine HCL [Paxil] 40 mg PO DAILY 10/28/17 10/28/17 History Allergies Allergy/AdvReac Type Severity Reaction Status Date / Time No Known Allergies Allergy Verified 10/28/17 18:42 Physical Examination - Vital Signs Vital Signs: Vital Signs Temp Pulse Pulse Resp BP Pulse Ox 10/29/17 20:00 105 H 16 134/61 96 10/29/17 19:45 151 H 16 128/72 96 10/29/17 19:30 147 H 16 118/72 96 10/29/17 19:17 150 H 16 124/59 96 10/29/17 19:00 144 H 16 118/59 96 03/07/18 18:45 137 H 16 120/67 96 10/29/17 18:21 97.2 F L 118 H 16 122/59 96 10/29/17 15:23 98.6 F 95 20 138/62 98 10/29/17 15:00 97.8 F 73 17 103/66 95 10/29/17 07:00 99.2 F 110 H 18 138/63 96 10/29/17 00:50 98.8 F 109 H 16 120/75 96 Intake and Output 10/29/17 10/29/17 10/29/17 06:59 14:59 22:59 Intake Total 801 Output Total 200 20 Balance -200 781 Intake: IV 801 Output: Urine 200 Estimated Blood Loss 20 Other: # Voids 1 2 - Constitutional General appearance: average body habitus, cooperative - EENT EENT: PERRL, mucous membranes moist - Respiratory Respiratory: lungs clear, normal breath sounds - Cardiovascular Cardiovascular: regular rate, normal S1, normal S2 Extremities: no peripheral edema bilaterally - Gastrointestinal Gastrointestinal: normoactive bowel sounds - Integumentary Integumentary: normal - Neurologic Cranial nerve examination: PERRL, EOMI, VFF, V1/V2/V3 grossly intact, face symmetric, tongue midline, intact gag reflex, intact corneal reflex, normal palatal elevation Speech examination: intact Sensorimotor examination: intact Motor examination - right side: 4/5: biceps, triceps, wrist flexion, wrist extension, television maintenance man, hip flexors, knee extensors, dorsiflexion Motor examination - left side: 4/5: biceps, triceps, wrist flexion, wrist extension, television maintenance man, hip flexors, knee extensors, dorsiflexion, toe extension (EHL) , plantarflexion Detailed sensory examination: intact Reflex and gait examination: intact Reflexes: 1+: ankle, bicep, knee, tricep - Musculoskeletal Musculoskeletal: no pain - Psychiatric Psychiatric: mood/affect appropriate, cooperative Results - Laboratory Findings CBC and BMP: 10/29/17 20:34 10/28/17 20:51 Abnormal Lab Findings: Abnormal Labs 10/28/17 10/28/17 10/29/17 17:51 20:51 08:00 Hgb Lymphocytes # BUN 18 H Creatinine 1.14 H Glucose 175 H POC Glucose (mg/dL) 183 H 168 H 10/29/17 10/29/17 10/29/17 11:37 15:22 20:19 Hgb Lymphocytes # BUN Creatinine Glucose POC Glucose (mg/dL) 140 H 127 H 185 H 10/29/17 10/29/17 20:34 20:43 Hgb 11.2 L Lymphocytes # 0.6 L BUN Creatinine Glucose POC Glucose (mg/dL) 198 H Assessment and Plan (1) Closed fracture dislocation of right ankle Current Visit: Yes Status: Acute Code(s): S82.891A - OTH FRACTURE OF RIGHT LOWER LEG, INIT FOR CLOS FX SNOMED Code(s): 418226482 (2) Thoracic spine pain Current Visit: Yes Status: Acute Code(s): M54.6 - PAIN IN THORACIC SPINE SNOMED Code(s): 849578995 (3) New onset atrial fibrillation Current Visit: Yes Status: Acute Code(s): I48.91 - UNSPECIFIED ATRIAL FIBRILLATION SNOMED Code(s): 43134494 (4) Diabetes mellitus Current Visit: Yes Status: Acute Code(s): E11.9 - TYPE 2 DIABETES MELLITUS WITHOUT COMPLICATIONS SNOMED Code(s): 36746434 Plan: This patient is a 62-year-old female who 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 She sustained a forward fall and injured her left rib cage as well as her right ankle. She was taken to the hospital where she was found to have evidence of a acute fracture involving the right ankle. It was a trimalleolar fracture with comminuted fragments. She was taken to the operating room by orthopedic surgery late this evening. Apparently in postop care she developed new onset of atrial fibrillation and was transferred to selective care floor for close monitoring. Neurology was consulted for evaluation of leg weakness. Patient has no weakness in either leg on examination today. She is complaining of some left- sided thoracic pain. We've recommended plain x-ray of the thoracic spine to be done tomorrow. Neurological examination otherwise is nonfocal at this time. We will await further recommendations from orthopedic surgery regarding her right ankle fracture. Her overall prognosis at this time remains guarded. We will continue close neurological follow-up for this patient. Time with Patient: Greater than 30
[2017-10-30] MEDS: ASPIRIN 325 MG TAB PO SCH ×3 (00:28→23:21)
[2017-10-30] MEDS: METOPROLOL TARTRATE 25 MG TAB PO SCH ×3 (00:29→23:22)
[2017-10-30] MEDS: SENNOSIDES-DOCUSATE SODIUM 1 EACH TAB PO SCH ×2 (00:29→23:22)
[2017-10-30] MEDS: HYDROcodone/APAP 7.5-325MG 1 EACH TAB PO PRN ×4 (00:30→23:24)
[2017-10-30] MEDS: ceFAZolin IN SWFI 2 GM/20 ML SYRINGE IVP SCH ×2 (00:43→09:49)
[2017-10-30 05:53] LABS: Glucose,Whole Blood 211 mg/dL (75-99)
[2017-10-30] MEDS: SODIUM CHLORIDE 0.9% 1,000 ML IV SCH ×4 (06:30→09:51)
[2017-10-30] MEDS: PANTOPRAZOLE 40 MG TABLET PO SCH (06:42)
[2017-10-30 06:54] LABS: Basophils % (A) 0 %; Eosinophils % (A) 0 %; HCT 30.5 % (34.0-46.0); HGB 10.1 gm/dL (11.4-16.0); Lymphocytes # (A) 0.7 k/uL (1.0-4.8); Lymphocytes % (A) 10 %; MCH 28.6 pg (25.0-35.0); MCHC 33.1 g/dL (31.0-37.0); MCV 86.6 fL (80.0-100.0); Monocytes # (A) 0.4 k/uL (0-1.0); Monocytes % (A) 5 %; Neutrophils % (A) 84 %; Platelet Count 228 k/uL (150-450); RBC 3.53 m/uL (3.80-5.40); RDW 14.1 % (11.5-15.5); WBC 7.1 k/uL (3.8-10.6)
[2017-10-30 07:16] LABS: Calcium 8.5 mg/dL (8.4-10.2); Potassium 4.8 mmol/L (3.5-5.1)
[2017-10-30] MEDS: PARoxetine 20 MG TAB PO SCH (07:51)
--- NOTE | 2017-10-30 08:13 | P.PN ---
Subjective Progress Note Date: 10/30/17 This is a 62-year-old female who is status post ORIF of right ankle. This is postoperative day #1. Patient states she has some pain to the right lower extremity, but this is tolerable. Patient developed atrial fibrillation last night and was transferred to [facility]. Patient states she may have experienced symptoms of atrial fibrillation one other time years ago. Today patient states she is feeling well. Patient states the left-side ribs continue to be painful. Patient denies any shortness of breath, chest pain, abdominal pain, fever/chills, numbness or weakness. Objective - Vital Signs Vital signs: Vital Signs Temp 98.0 F 10/30/17 04:00 Pulse 82 10/30/17 08:00 Resp 18 10/30/17 08:00 BP 118/56 10/30/17 07:47 Pulse Ox 92 L 10/30/17 07:47 Intake & Output 10/29/17 10/30/17 10/30/17 18:59 06:59 18:59 Intake Total 801 Output Total 220 200 Balance 581 -200 Weight 89.5 kg Intake: IV 801 Output: Urine 200 200 Estimated Blood Loss 20 Other: Voiding Method Bedpan Bedpan # Voids 2 2 - Exam On exam patient is sitting up comfortably in bed in no acute distress. Patient is alert and oriented 3. Splint to right lower extremity is clean, dry and intact. Patient is able to move the toes without pain or difficulty. Capillary refill is normal at less than 2 seconds. Sensation intact. Neurovascular status and circulatory status are intact. - Labs CBC & Chem 7: 10/30/17 06:12 10/30/17 06:12 Labs: Abnormal Lab Results - Last 24 Hours (Table) 10/28/17 10/29/17 10/29/17 Range/Units 06:00 08:00 11:37 RBC (3.80-5.40) m/uL Hgb (11.4-16.0) gm/dL Hct (34.0-46.0) % Lymphocytes # (1.0-4.8) k/uL Glucose (74-99) mg/dL POC Glucose (mg/dL) 168 H 140 H (75-99) mg/dL Hemoglobin A1c 6.9 H (4.0-6.0) % 10/29/17 10/29/1718 Range/Units 15:22 20:19 20:34 RBC (3.80-5.40) m/uL Hgb 11.2 L (11.4-16.0) gm/dL Hct (34.0-46.0) % Lymphocytes # 0.6 L (1.0-4.8) k/uL Glucose (74-99) mg/dL POC Glucose (mg/dL) 127 H 185 H (75-99) mg/dL Hemoglobin A1c (4.0-6.0) % 10/29/17 10/30/17 10/30/17 Range/Units 20:43 05:50 06:12 RBC 3.53 L (3.80-5.40) m/uL Hgb 10.1 L (11.4-16.0) gm/dL Hct 30.5 L (34.0-46.0) % Lymphocytes # 0.7 L (1.0-4.8) k/uL Glucose (74-99) mg/dL POC Glucose (mg/dL) 198 H 211 H (75-99) mg/dL Hemoglobin A1c (4.0-6.0) % 10/30/17 Range/Units 06:12 RBC (3.80-5.40) m/uL Hgb (11.4-16.0) gm/dL Hct (34.0-46.0) % Lymphocytes # (1.0-4.8) k/uL Glucose 193 H (74-99) mg/dL POC Glucose (mg/dL) (75-99) mg/dL Hemoglobin A1c (4.0-6.0) % Assessment and Plan (1) Closed fracture dislocation of right ankle Current Visit: Yes Status: Acute Code(s): S82.891A - OTH FRACTURE OF RIGHT LOWER LEG, INIT FOR CLOS FX SNOMED Code(s): 981684259 Plan: #1. Keep splint clean, dry and intact. #2.Continue routine postoperative care and pain control. #3. Patient is to remain nonweightbearing to the right lower extremity. #4. Physical therapy today to help with transfers. #5. Keep right lower extremity elevated for swelling. #6. Appreciate input from medicine #7. Anticipate discharge home when medically stable.
[2017-10-30] MEDS: DILTIAZEM 50 MG in SODIUM CHLORIDE 0.9% 40 ML IV SCH ×2 (10:45→11:34)
--- NOTE | 2017-10-30 11:11 | CONS ---
CONSULTATION Yesenia Barnes is a 62-year-old female who fell and broke her ankle. Cardiology was consulted on account of atrial fibrillation with RVR. A 12-lead ECG was reviewed and shows atrial fibrillation with RVR. On detailed questioning, she did not have any chest pain, dizziness, lightheadedness or loss of consciousness. However, she states that she has had palpitations in the past and has been diagnosed with atrial fibrillation. PAST HISTORY: Of atrial fibrillation and she has had palpitations in the past for at least 4 years now. Past history of hypertension, diabetes, GERD and obesity. PAST SURGERIES: Recent ankle fracture and open reduction, internal fixation, and history of esophageal stricture secondary to GERD. SOCIAL HISTORY: Former smoker. No history of alcohol use. REVIEW OF SYSTEMS: No fever, chills, or rigors. No cough or expectoration. No nausea, vomiting, diarrhea, hematuria, dysuria. No strokes, seizures or skin lesions, no musculoskeletal complaints. HOME MEDICATIONS: Include aspirin 325 mg p.o. daily, metoprolol, metformin, insulin, omeprazole, and Paxil. ALLERGIES: No known drug allergies. PHYSICAL EXAMINATION: When she was in A. fib, she had heart rates up to 112 beats per minute. She is afebrile, 98.8 degrees Fahrenheit, blood pressure is 180/56 mmHg. Currently, she is in sinus rhythm. Heart rate in the 80s. Head and neck examination is normal. Heart sounds, S1, S2 are soft. Lungs decreased breath sounds bilaterally with no rhonchi, no crackles. She just had orthopedic surgery of her ankle. IMPRESSION: 1. Paroxysmal atrial fibrillation with RVR. 2. Postoperative state at this time. 3. Diabetes, adult onset. 4. Hypertension. 5. Obesity. 6. Esophageal stricture. SUGGEST: Her KENYATTA VASC score is at least 3 and she is an appropriate candidate for anticoagulation, I would stop aspirin and start her on Eliquis or Xarelto once it is okay with the Orthopedic Surgery. Continue metoprolol 25 mg twice daily. IV diltiazem can be stopped, metoprolol can be continued and she is also a candidate for statin therapy. I will get a lipid panel on her since she is a diabetic. She will also need to be on PING inhibitors for hypertension management. MMODL / IJN: [id number] /
[2017-10-30 12:01] LABS: Glucose,Whole Blood 202 mg/dL (75-99)
--- NOTE | 2017-10-30 12:08 | P.PN ---
Subjective Progress Note Date: 10/30/17 Principal diagnosis: Patient seen and examined in follow-up for postoperative medical management and management of diabetes mellitus Patient seen and examined today doing well tolerated procedure today very well. Overnight she had an episode of paroxysmal atrial fibrillation completely asymptomatic patient didn't feel any skipped beats or arrhythmia however the nurses told her that her heart is beating irregularly for which she was transferred to stepdown unit for closer monitoring. Currently denies any chest pain or trouble breathing denies any headache nausea or vomiting she tolerated food very well denies passing bowel movements. She is passing gases. She reports that pain is well controlled Objective - Vital Signs Vital signs: Vital Signs Temp 97.1 F L 10/30/17 11:35 Pulse 86 10/30/17 11:37 Resp 20 10/30/17 11:37 BP 104/64 10/30/17 11:35 Pulse Ox 90 L 10/30/17 11:35 Intake & Output 10/29/17 10/30/17 10/30/17 18:59 06:59 18:59 Intake Total 801 925 Output Total 220 200 Balance 581 -200 925 Weight 89.5 kg Intake: IV 801 Oral 925 Output: Urine 200 200 Estimated Blood Loss 20 Other: Voiding Method Bedpan Bedpan # Voids 2 2 1 - Exam Constitutional: vital signs stable, Not in acute distress, pleasant, conversant Lungs: Clear to auscultation bilaterally, clear to percussion, normal respiratory effort no use of accessory muscles Cardiovascular: Regular rate and rhythm, no murmurs, no gallops, no rubs, no peripheral edema Gastrointestinal: Soft, no tenderness to palpation, no palpable hepatosplenomegally, bowel sounds positive, no abdominal wall hernias Extremities: No digital cyanosis or clubbing, peripheral pulses palpable and equal over bilateral radial arteries and left dorsalis pedis artery, no calf muscle tenderness on the left side, right leg surgical dressing and cast however capillary refill is immediate over the right rectum Psych: Alert, oriented to place, person and time, appropriate affect, intact judgment - Labs CBC & Chem 7: 10/30/17 06:12 10/30/17 06:12 Labs: Abnormal Lab Results - Last 24 Hours (Table) 10/28/17 10/29/17 10/29/17 Range/Units 06:00 15:22 20:19 RBC (3.80-5.40) m/uL Hgb (11.4-16.0) gm/dL Hct (34.0-46.0) % Lymphocytes # (1.0-4.8) k/uL Glucose (74-99) mg/dL POC Glucose (mg/dL) 127 H 185 H (75-99) mg/dL Hemoglobin A1c 6.9 H (4.0-6.0) % 10/29/17 10/29/17 10/30/17 Range/Units 20:34 20:43 05:50 RBC (3.80-5.40) m/uL Hgb 11.2 L (11.4-16.0) gm/dL Hct (34.0-46.0) % Lymphocytes # 0.6 L (1.0-4.8) k/uL Glucose (74-99) mg/dL POC Glucose (mg/dL) 198 H 211 H (75-99) mg/dL Hemoglobin A1c (4.0-6.0) % 10/30/17 10/30/17 10/30/17 Range/Units 06:12 06:12 11:42 RBC 3.53 L (3.80-5.40) m/uL Hgb 10.1 L (11.4-16.0) gm/dL Hct 30.5 L (34.0-46.0) % Lymphocytes # 0.7 L (1.0-4.8) k/uL Glucose 193 H (74-99) mg/dL POC Glucose (mg/dL) 202 H (75-99) mg/dL Hemoglobin A1c (4.0-6.0) % Assessment and Plan Assessment: 62-year-old female with past history of hypertension, diabetes mellitus, and GERD. Presented after sustaining an injury while working in her forearm has a bale of hay fell on her pushing her resulting in injury in her right ankle found to have fracture of the right ankle for which ORIF was performed. Overnight on postoperative day #0 she had an attack of paroxysmal atrial fibrillation. For which she was transferred to the cardiac unit for closer monitoring. She denies any associated symptoms with the attack she does not recall experiencing any events of arrhythmia in the past. (1) Closed fracture dislocation of right ankle Narrative/Plan: Status post ORIF day 1 Due to accidental injury Management per orthopedics Pain control Current Visit: Yes Status: Acute Code(s): S82.891A - OTH FRACTURE OF RIGHT LOWER LEG, INIT FOR CLOS FX SNOMED Code(s): 167724256 (2) Diabetes mellitus Narrative/Plan: Continue with insulin sliding scale Hold oral hypoglycemics Resume long-acting insulin postop patient started on Levemir 10 units due to patient is not eating enough at the moment at home she uses 30 units Check A1c Current Visit: Yes Status: Acute Code(s): E11.9 - TYPE 2 DIABETES MELLITUS WITHOUT COMPLICATIONS SNOMED Code(s): 42621875 (3) New onset atrial fibrillation Narrative/Plan: paroxysmal atrial fibrillation, ? new onset , CHADS VASC score of 3 ( hypertension, DM, female sex) Patient is a good candidate for anticoagulation defer to cardiology Currently patient in sinus rhythm and rate controlled continue with metoprolol Follow-up magnesium and potassium Check TSH Current Visit: Yes Status: Acute Code(s): I48.91 - UNSPECIFIED ATRIAL FIBRILLATION SNOMED Code(s): 72306242 (4) Hypertension Narrative/Plan: Blood pressure is controlled for now Continue with metoprolol Current Visit: Yes Status: Acute Code(s): I10 - ESSENTIAL (PRIMARY) HYPERTENSION SNOMED Code(s): 89424208 (5) GERD (gastroesophageal reflux disease) Narrative/Plan: Continue with PPI Current Visit: Yes Status: Acute Code(s): K21.9 - GASTRO-ESOPHAGEAL REFLUX DISEASE WITHOUT ESOPHAGITIS SNOMED Code(s): 348159467 (6) DVT prophylaxis Narrative/Plan: Consider starting the patient on pharmacologic DVT prophylaxis Or possibly patient will be started on full anticoagulation due to underlying paroxysmal A. fib pending further cardiology recommendations and clearance by orthopedics Current Visit: Yes Status: Acute Code(s): VCS7190 - SNOMED Code(s): 339162202 (7) Depression Narrative/Plan: continue paxil Current Visit: Yes Status: Acute Code(s): F32.9 - MAJOR DEPRESSIVE DISORDER , SINGLE EPISODE, UNSPECIFIED SNOMED Code(s): 21907948 (8) Postoperative anemia Narrative/Plan: Mild postoperative anemia Patient denies any active bleeding Start by mouth iron Current Visit: Yes Status: Acute Code(s): D64.9 - ANEMIA, UNSPECIFIED SNOMED Code(s): 926782433
[2017-10-30 14:04] LABS: T4, Free (Free Thyroxine) 1.11 ng/dL (0.78-2.19)
--- NOTE | 2017-10-30 14:31 | XR ---
Thoracic spine HISTORY: Trauma and pain 4 views of the thoracic spine There is a mild spinal curvature. Thoracic vertebral bodies show preserved height, alignment, and bon e mineralization. Multilevel spondylosis is present. Disc spaces are maintained. IMPRESSION: No acute fracture or subluxation, follow-up as indicated. Degenerative disc disease.
[2017-10-30] MEDS: INSULIN DETEMIR 100 UNIT/ML 10 ML VIAL SQ SCH (16:13)
[2017-10-30] MEDS: FERROUS SULFATE 325 MG TAB PO SCH (16:14)
[2017-10-30 16:33] VITALS: RESP 18
[2017-10-30 16:52] LABS: Glucose,Whole Blood 252 mg/dL (75-99)
[2017-10-30 21:02] LABS: Glucose,Whole Blood 198 mg/dL (75-99)
--- NOTE | 2017-10-30 21:57 | P.PN ---
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 Apparently a bail of hay fell on her pushing her forwards and injuring her right ankle. She sustained a fracture to the right ankle and required orthopedic surgery for a try malleolus fracture. Postoperatively she developed new onset of paroxysmal atrial fibrillation and was transferred to the cardiac unit for close monitoring yesterday. Neurology was in evaluating bilateral leg weakness. She seems to be doing well in terms of her recent fracture and surgical ORIF procedure. She was complaining of some thoracic back pain with no weakness in the left leg yesterday. She was sent for a plain x-ray of the thoracic spine today which came back normal with no acute fracture or subluxation. We did review the results of the x-ray of the thoracic spine today with the patient. Mild degenerative disc disease was noted. Patient is feeling better today. She has been able to stand and work with physical therapy somewhat with the use of a walker. We will continue close neurological follow-up for this patient during this admission. Objective - Vital Signs Vital signs: Vital Signs Temp 97.6 F 10/30/17 16:00 Pulse 91 10/30/17 16:00 Resp 18 10/30/17 16:00 BP 132/66 10/30/17 16:00 Pulse Ox 93 L 10/30/17 16:00 Intake & Output 10/30/17 10/30/17 10/31/17 06:59 18:59 06:59 Intake Total 1165 Output Total 200 400 Balance -200 765 Weight 89.5 kg Intake: Oral 1165 Output: Urine 200 400 Other: Voiding Method Bedpan Bedpan # Voids 2 1 - Exam Physical examination: PHYSICAL EXAMINATION: Patient is resting comfortably in bed. VITAL SIGNS: Blood pressure is [132/65]. Heart rate is [91]. Respiration is [18] . Temperature is [97.6]. HEENT: Head is atraumatic, neck is supple, there were no carotid bruits. CHEST: Lungs are clear to auscultation and percussion. CARDIAC: S1, S2 normal rate and rhythm. There is no murmur. ABDOMEN: Soft and nontender. Bowel sounds are present. EXTREMITIES: There is no pedal edema. Peripheral pulses are present. Neurological examination: Patient has a nonfocal neurological exam. She has a cast for right ankle and foot. - Labs CBC & Chem 7: 10/30/17 06:12 10/30/17 06:12 Labs: Abnormal Lab Results - Last 24 Hours (Table) 10/28/17 10/30/17 10/30/17 Range/Units 06:00 05:50 06:12 RBC 3.53 L (3.80-5.40) m/uL Hgb 10.1 L (11.4-16.0) gm/dL Hct 30.5 L (34.0-46.0) % Lymphocytes # 0.7 L (1.0-4.8) k/uL Glucose (74-99) mg/dL POC Glucose (mg/dL) 211 H (75-99) mg/dL Hemoglobin A1c 6.9 H (4.0-6.0) % TSH (0.465-4.680) mIU/L 10/30/17 10/30/17 10/30/17 Range/Units 06:12 06:12 11:42 RBC (3.80-5.40) m/uL Hgb (11.4-16.0) gm/dL Hct (34.0-46.0) % Lymphocytes # (1.0-4.8) k/uL Glucose 193 H (74-99) mg/dL POC Glucose (mg/dL) 202 H (75-99) mg/dL Hemoglobin A1c (4.0-6.0) % TSH 0.422 L (0.465-4.680) mIU/L 10/30/17 10/30/17 Range/Units 16:51 20:59 RBC (3.80-5.40) m/uL Hgb (11.4-16.0) gm/dL Hct (34.0-46.0) % Lymphocytes # (1.0-4.8) k/uL Glucose (74-99) mg/dL POC Glucose (mg/dL) 252 H 198 H (75-99) mg/dL Hemoglobin A1c (4.0-6.0) % TSH (0.465-4.680) mIU/L Assessment and Plan (1) Closed fracture dislocation of right ankle Current Visit: Yes Status: Acute Code(s): S82.891A - OTH FRACTURE OF RIGHT LOWER LEG, INIT FOR CLOS FX SNOMED Code(s): 932923606 (2) Thoracic spine pain Current Visit: Yes Status: Acute Code(s): M54.6 - PAIN IN THORACIC SPINE SNOMED Code(s): 490591394 (3) New onset atrial fibrillation Current Visit: Yes Status: Acute Code(s): I48.91 - UNSPECIFIED ATRIAL FIBRILLATION SNOMED Code(s): 50151473 (4) Diabetes mellitus Current Visit: Yes Status: Acute Code(s): E11.9 - TYPE 2 DIABETES MELLITUS WITHOUT COMPLICATIONS SNOMED Code(s): 64795109 Plan: This patient is a 62-year-old female who 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 She sustained a forward fall and injured her left rib cage as well as her right ankle. She was taken to the hospital where she was found to have evidence of a acute fracture involving the right ankle. It was a trimalleolar fracture with comminuted fragments. She was taken to the operating room by orthopedic surgery late this evening. Apparently in postop care she developed new onset of atrial fibrillation and was transferred to selective care floor for close monitoring. Neurology was consulted for evaluation of leg weakness. Patient has no weakness in either leg on examination today. She is complaining of some left- sided thoracic pain. We've recommended plain x-ray of the thoracic spine to be done today. The results of the plain x-ray of the thoracic spine came back normal with no acute fracture or subluxation. Some degenerative disc changes were noted. We reviewed the results today with the patient at bedside. Neurological examination otherwise is nonfocal at this time. We will await further recommendations from orthopedic surgery regarding her right ankle fracture. Her overall prognosis at this time remains guarded. We will continue close neurological follow-up for this patient.
[2017-10-31 06:01] LABS: Basophils % (A) 1 %; Eosinophils # (A) 0.2 k/uL (0-0.7); Eosinophils % (A) 4 %; HGB 9.1 gm/dL (11.4-16.0); Hypochromasia Slight; Lymphocytes # (A) 1.4 k/uL (1.0-4.8); Lymphocytes % (A) 22 %; MCH 27.6 pg (25.0-35.0); MCHC 31.4 g/dL (31.0-37.0); MCV 87.9 fL (80.0-100.0); Mean Platelet Volume 8.5; Monocytes # (A) 0.5 k/uL (0-1.0); Monocytes % (A) 7 %; Neutrophils # (A) 4.1 k/uL (1.3-7.7); Neutrophils % (A) 66 %; Platelet Count 220 k/uL (150-450); RDW 14.6 % (11.5-15.5); WBC 6.3 k/uL (3.8-10.6)
[2017-10-31 06:41] LABS: Glucose,Whole Blood 123 mg/dL (75-99)
[2017-10-31] MEDS: FERROUS SULFATE 325 MG TAB PO SCH (08:26)
[2017-10-31] MEDS: ASPIRIN 325 MG TAB PO SCH (08:26)
[2017-10-31] MEDS: SODIUM CHLORIDE 0.9% 1,000 ML IV SCH (08:26)
[2017-10-31] MEDS: PANTOPRAZOLE 40 MG TABLET PO SCH (08:26)
[2017-10-31] MEDS: PARoxetine 20 MG TAB PO SCH (08:27)
[2017-10-31] MEDS: METOPROLOL TARTRATE 25 MG TAB PO SCH (08:27)
[2017-10-31] MEDS: INSULIN ASPART 100 UNIT/ML 1 ML 10 ML VIAL SQ SCH ×2 (08:28→12:14)
[2017-10-31] MEDS: INSULIN DETEMIR 100 UNIT/ML 10 ML VIAL SQ SCH (08:30)
--- NOTE | 2017-10-31 08:40 | P.PN ---
Subjective Progress Note Date: 10/31/17 This is a 62-year-old female who is status post ORIF of right ankle. This is postoperative day #2. Patient states her pain is well controlled. Patient states she gets occasional sharp pains in the right ankle but they only last a few seconds and go away. Patient states she was walking with physical therapy yesterday, but she struggled with the walker while trying to stay nonweightbearing to the right leg. Patient states she will likely get a knee scooter for when she is home. Patient has been evaluated by cardiology for atrial fibrillation. Patient states she may have experienced symptoms of atrial fibrillation years ago. Patient has also been evaluated by neurology and had an x-ray of the thoracic spine which was negative for any fracture. There were some degenerative changes noted on the thoracic spine x-ray. Patient denies any shortness of breath, chest pain, abdominal pain, fever/chills, numbness or weakness. Objective - Vital Signs Vital signs: Vital Signs Temp 98.0 F 10/31/17 04:00 Pulse 74 10/31/17 04:00 Resp 18 10/31/17 04:00 BP 117/58 10/31/17 04:00 Pulse Ox 95 10/31/17 04:00 Intake & Output 10/30/17 10/31/17 10/31/17 18:59 06:59 18:59 Intake Total 1165 240 Output Total 400 800 Balance 765 -800 240 Weight 95 kg Intake: Oral 1165 240 Output: Urine 400 800 Other: Voiding Method Bedpan Bedpan # Voids 1 1 - Exam On exam patient is sitting up comfortably in bed in no acute distress. Patient is alert and oriented 3. Splint to right lower extremity is clean, dry and intact. Patient is able to move the toes without pain or difficulty. Capillary refill is normal at less than 2 seconds. Sensation intact. Neurovascular status and circulatory status are intact. - Labs CBC & Chem 7: 10/31/17 05:41 10/30/17 06:12 Labs: Abnormal Lab Results - Last 24 Hours (Table) 10/30/17 10/30/17 10/30/17 Range/Units 06:12 11:42 16:51 RBC (3.80-5.40) m/uL Hgb (11.4-16.0) gm/dL Hct (34.0-46.0) % POC Glucose (mg/dL) 202 H 252 H (75-99) mg/dL TSH 0.422 L (0.465-4.680) mIU/L 10/30/17 10/31/17 10/31/17 Range/Units 20:59 05:41 06:22 RBC 3.30 L (3.80-5.40) m/uL Hgb 9.1 L (11.4-16.0) gm/dL Hct 29.0 L (34.0-46.0) % POC Glucose (mg/dL) 198 H 123 H (75-99) mg/dL TSH (0.465-4.680) mIU/L Assessment and Plan (1) Closed fracture dislocation of right ankle Current Visit: Yes Status: Acute Code(s): S82.891A - OTH FRACTURE OF RIGHT LOWER LEG, INIT FOR CLOS FX SNOMED Code(s): 418781322 (2) Atrial fibrillation Current Visit: Yes Status: Acute Code(s): I48.91 - UNSPECIFIED ATRIAL FIBRILLATION SNOMED Code(s): 10409154 (3) Diabetes mellitus Current Visit: Yes Status: Acute Code(s): E11.9 - TYPE 2 DIABETES MELLITUS WITHOUT COMPLICATIONS SNOMED Code(s): 03888427 Plan: #1. Keep splint clean, dry and intact. #2. Continue routine postoperative care and pain control. DVT prophylaxis. #3. Patient is to remain nonweightbearing to the right lower extremity. #4. Physical therapy today to help with transfers. #5. Keep right lower extremity elevated for swelling. #6. Appreciate input from internal medicine and cardiology. #7. Anticipate discharge home when medically stable.
--- NOTE | 2017-10-31 09:02 | P.PN ---
Subjective Progress Note Date: 10/31/17 Principal diagnosis: Patient seen and examined in follow-up for postoperative medical management and management of diabetes mellitus Patient seen and examined today doing well no new complaints, site monitor showing no more events of A. fib, patient denies any chest pain or trouble breathing denies any palpitations. Tolerating diet well, pain is well controlled. She is eager to go home Objective - Vital Signs Vital signs: Vital Signs Temp 98.0 F 10/31/17 04:00 Pulse 74 10/31/17 04:00 Resp 18 10/31/17 04:00 BP 117/58 10/31/17 04:00 Pulse Ox 95 10/31/17 04:00 Intake & Output 10/30/17 10/31/17 10/31/17 18:59 06:59 18:59 Intake Total 1165 240 Output Total 400 800 Balance 765 -800 240 Weight 95 kg Intake: Oral 1165 240 Output: Urine 400 800 Other: Voiding Method Bedpan Bedpan # Voids 1 1 - Exam Constitutional: vital signs stable, Not in acute distress, pleasant, conversant Lungs: Clear to auscultation bilaterally, clear to percussion, normal respiratory effort no use of accessory muscles Cardiovascular: Regular rate and rhythm, no murmurs, no gallops, no rubs, no peripheral edema Gastrointestinal: Soft, no tenderness to palpation, no palpable hepatosplenomegally, bowel sounds positive, no abdominal wall hernias Extremities: No digital cyanosis or clubbing, peripheral pulses palpable and equal over bilateral radial arteries and left dorsalis pedis artery, no calf muscle tenderness bilaterally, right leg surgical dressing and splint however capillary refill is immediate over the right big toe Psych: Alert, oriented to place, person and time, appropriate affect, intact judgment - Labs CBC & Chem 7: 10/31/17 05:41 10/30/17 06:12 Labs: Abnormal Lab Results - Last 24 Hours (Table) 10/30/17 10/30/17 10/30/17 Range/Units 06:12 11:42 16:51 RBC (3.80-5.40) m/uL Hgb (11.4-16.0) gm/dL Hct (34.0-46.0) % POC Glucose (mg/dL) 202 H 252 H (75-99) mg/dL TSH 0.422 L (0.465-4.680) mIU/L 10/30/17 10/31/17 10/31/17 Range/Units 20:59 05:41 06:22 RBC 3.30 L (3.80-5.40) m/uL Hgb 9.1 L (11.4-16.0) gm/dL Hct 29.0 L (34.0-46.0) % POC Glucose (mg/dL) 198 H 123 H (75-99) mg/dL TSH (0.465-4.680) mIU/L Assessment and Plan Assessment: 62-year-old female with past history of hypertension, diabetes mellitus, and GERD. Presented after sustaining an injury while working in her forearm has a bale of hay fell on her pushing her resulting in injury in her right ankle found to have fracture of the right ankle for which ORIF was performed. Overnight on postoperative day #0 she had an attack of paroxysmal atrial fibrillation; however asymptomatic. For which she was transferred to the cardiac unit for closer monitoring. Cardiology following up on the paroxysmal A. fib recommending outpatient follow-up in the office, from medical standpoint blood sugar has been well-controlled patient tolerating by mouth intake. (1) Closed fracture dislocation of right ankle Narrative/Plan: Status post ORIF day 2 Due to accidental injury Management per orthopedics Pain control Current Visit: Yes Status: Acute Code(s): S82.891A - OTH FRACTURE OF RIGHT LOWER LEG, INIT FOR CLOS FX SNOMED Code(s): 159007326 (2) Diabetes mellitus Narrative/Plan: Continue with insulin sliding scale, and long-acting insulin Hold oral hypoglycemics Upon discharge patient is to resume long-acting insulin Lantus at 30 units that she used to take her home, and to continue metformin by mouth Patient advised to closely monitor her blood sugar and educated regarding symptoms of hypoglycemia Current Visit: Yes Status: Acute Code(s): E11.9 - TYPE 2 DIABETES MELLITUS WITHOUT COMPLICATIONS SNOMED Code(s): 07017771 (3) New onset atrial fibrillation Narrative/Plan: paroxysmal atrial fibrillation, ? new onset , CHADS VASC score of 3 ( hypertension, DM, female sex) Patient is a good candidate for anticoagulation defer to cardiology Currently patient in sinus rhythm and rate controlled continue with metoprolol Electrolytes checked in stable Thyroid function Function test was reviewed, TSH was low however free T4 was within normal limits, consider outpatient follow-up with PCP repeat thyroid testing in 6 weeks Current Visit: Yes Status: Acute Code(s): I48.91 - UNSPECIFIED ATRIAL FIBRILLATION SNOMED Code(s): 32154863 (4) Hypertension Narrative/Plan: Blood pressure is controlled for now Continue with metoprolol Current Visit: Yes Status: Acute Code(s): I10 - ESSENTIAL (PRIMARY) HYPERTENSION SNOMED Code(s): 45487637 (5) GERD (gastroesophageal reflux disease) Narrative/Plan: Continue with PPI Current Visit: Yes Status: Acute Code(s): K21.9 - GASTRO-ESOPHAGEAL REFLUX DISEASE WITHOUT ESOPHAGITIS SNOMED Code(s): 350841812 (6) DVT prophylaxis Narrative/Plan: Consider starting the patient on pharmacologic DVT prophylaxis Currently on aspirin full dose twice a day per orthopedics Current Visit: Yes Status: Acute Code(s): FJY8766 - SNOMED Code(s): 763423763 (7) Depression Narrative/Plan: continue paxil Current Visit: Yes Status: Acute Code(s): F32.9 - MAJOR DEPRESSIVE DISORDER , SINGLE EPISODE, UNSPECIFIED SNOMED Code(s): 38259702 (8) Postoperative anemia Narrative/Plan: Mild postoperative anemia Patient denies any active bleeding Start by mouth iron Current Visit: Yes Status: Acute Code(s): D64.9 - ANEMIA, UNSPECIFIED SNOMED Code(s): 058712481 Plan: Patient is stable from internal medicine standpoint for discharge Medication reconsultation for discharge will be performed for the medical aspect
--- NOTE | 2017-10-31 09:31 | P.DS ---
Providers Date of admission: 10/30/17 13:58 Expected date of discharge: 10/31/17 Attending physician: Jason Mijares Consults: 10/28/17 18:41 Consult Physician Stat Consulting Provider: Chicho Lafleur Consult Reason/Comments: bilateral lower extremity weakness Do you want consulting provider notified?: Yes 10/29/17 08:10 Consult Physician Stat Consulting Provider: Raven Juan Consult Reason/Comments: medical clearance Do you want consulting provider notified?: Yes 10/29/17 19:08 Consult Physician Stat Consulting Provider: Chandler Hale Consult Reason/Comments: New Onset Afib Do you want consulting provider notified?: Already Contacted Primary care physician: Adalberto Sarah - Discharge Diagnosis(es) (1) Closed fracture dislocation of right ankle Current Visit: Yes Status: Acute (2) Atrial fibrillation Current Visit: Yes Status: Acute (3) Diabetes mellitus Current Visit: Yes Status: Acute Hospital Course: This is a 62-year-old female who sustained a right ankle fracture dislocation on 10/28/2017 after a large bale of hay fell on top of her. The patient presented for evaluation in the emergency room and her ankle was reduced and splinted by the emergency room. Patient was admitted for orthopedic evaluation. After discussion and consideration patient elects to proceed with ORIF right ankle. The patient is seen preoperatively by Dr. Mijares and medically cleared for surgery by internal medicine. Patient is admitted to [facility] on 10/28/2017 and ORIF right ankle is done on 10/29/2017. The procedures performed without complication or sequelae. The patient is doing well postoperatively. Patient did develop atrial fibrillation postoperatively and has been evaluated and treated by cardiology. Patient was also evaluated by neurology and thoracic spine x-rays were done due to patient's left-sided rib pain. Thoracic spine x-rays were negative for any acute fracture. There were some degenerative changes noted on thoracic spine x-rays. Rib x-rays done in the emergency room were negative for any rib fractures. Labs and vital signs are stable on day of discharge. Patient has been working with physical therapy and states she is not interested in ECF placement. On day of discharge patient is alert and oriented 3 and sitting up in bed in no acute distress. Patient's splint is clean, dry and intact. Patient is able to move the toes of the right foot without pain or difficulty. Sensation intact. Capillary refill is normal at less than 2 seconds. Neurovascular status to the right lower extremity is intact. Patient is discharged home in good condition. Please see med rec for accurate list of home medications. Patient Condition at Discharge: Serious Plan - Discharge Summary Discharge Rx Participant: Yes New Discharge Prescriptions: New HYDROcodone/APAP 7.5-325MG [[place] 7.5-325] 1 - 2 tab PO Q4-6H PRN #90 tab PRN Reason: Pain Sennosides [Senokot] 1 tab PO BID #60 tablet No Action metFORMIN HCL [Glucophage] 1,000 mg PO DAILY Metoprolol Tartrate [Lopressor] 25 mg PO DAILY Aspirin 325 mg PO DAILY Omeprazole [PriLOSEC] 20 mg PO AC-BID PARoxetine HCL [Paxil] 40 mg PO DAILY Insulin Glargine,Hum.rec.anlog [Basaglar Kwikpen U-100] 30 unit SQ HS Discharge Medication List Aspirin 325 mg PO DAILY 10/04/14 [History] Metoprolol Tartrate [Lopressor] 25 mg PO DAILY 10/04/14 [History] metFORMIN HCL [Glucophage] 1,000 mg PO DAILY 10/04/14 [History] Insulin Glargine,Hum.rec.anlog [Basaglar Kwikpen U-100] 30 unit SQ HS 10/28/17 [ History] Omeprazole [PriLOSEC] 20 mg PO AC-BID 10/28/17 [History] PARoxetine HCL [Paxil] 40 mg PO DAILY 10/28/17 [History] HYDROcodone/APAP 7.5-325MG [[place] 7.5-325] 1 - 2 tab PO Q4-6H PRN #90 tab [Rx] Sennosides [Senokot] 1 tab PO BID #60 tablet 10/31/17 [Rx] Follow up Appointment(s)/Referral(s): Adalberto Sarah MD [Primary Care Provider] - 1-2 days Jason Mijares DO [Doctor of Osteopathic Medicine] - 1 Week Activity/Diet/Wound Care/Special Instructions: Strictly nonweightbearing to right lower extremity using walker or knee scooter. Keep splint clean, dry and intact. Elevate right lower extremity to prevent swelling. Please take medications as prescribed. Follow-up with [facility] in one week. Please call with any questions or concerns, . Discharge Disposition: HOME SELF-CARE
--- NOTE | 2017-10-31 09:37 | P.PN ---
Subjective Patient is doing well. He is she remains in sinus rhythm she has no chest discomfort no undue shortness of breath On examination she is afebrile 98F pulse rate in the 70s blood pressure 117/58 mmHg Heart sounds are normal Breath sounds are clear Abdomen soft Impression recent ankle surgery Paroxysmal atrial fibrillation for many years From a cardiac standpoint Continue metoprolol 25 g twice daily Follow-up with Dr. Rojo in about 6-8 weeks She may go home from a cardiac standpoint or be transferred to the medical floor from a cardiac standpoint Objective - Vital Signs Vital signs: Vital Signs Temp 98.0 F 10/31/17 04:00 Pulse 74 10/31/17 04:00 Resp 18 10/31/17 04:00 BP 117/58 10/31/17 04:00 Pulse Ox 95 10/31/17 04:00 Intake & Output 10/30/17 10/31/17 10/31/17 18:59 06:59 18:59 Intake Total 1165 240 Output Total 400 800 Balance 765 -800 240 Weight 95 kg Intake: Oral 1165 240 Output: Urine 400 800 Other: Voiding Method Bedpan Bedpan # Voids 1 1 - Labs CBC & Chem 7: 10/31/17 05:41 10/30/17 06:12 Labs: Abnormal Lab Results - Last 24 Hours (Table) 10/30/17 10/30/17 10/30/17 Range/Units 06:12 11:42 16:51 RBC (3.80-5.40) m/uL Hgb (11.4-16.0) gm/dL Hct (34.0-46.0) % POC Glucose (mg/dL) 202 H 252 H (75-99) mg/dL TSH 0.422 L (0.465-4.680) mIU/L 10/30/17 10/31/17 10/31/17 Range/Units 20:59 05:41 06:22 RBC 3.30 L (3.80-5.40) m/uL Hgb 9.1 L (11.4-16.0) gm/dL Hct 29.0 L (34.0-46.0) % POC Glucose (mg/dL) 198 H 123 H (75-99) mg/dL TSH (0.465-4.680) mIU/L
[2017-10-31] MEDS: HYDROcodone/APAP 7.5-325MG 1 EACH TAB PO PRN (10:50)
[2017-10-31 11:30] VITALS: BP 146/68; PULSE 83; TEMP 97
[2017-10-31 11:50] LABS: Glucose,Whole Blood 153 mg/dL (75-99)
--- NOTE | 2017-11-03 13:14 | ECHOF ---
Referral Reason:new onset Afib MEASUREMENTS -------- HEIGHT: 165.1 cm WEIGHT: 81.6 kg BP: 117/58 RVIDd: 2.8 cm (< 3.3) IVSd: 1.0 cm (0.6 - 1.1) LVIDd: 3.9 cm (3.9 - 5.3) LVPWd: 1.1 cm (0.6 - 1.1) IVSs: 1.3 cm LVIDs: 2.2 cm LVPWs: 1.4 cm LAESV Index (A-L): 19.57 ml/m Ao Diam: 2.6 cm (2.0 - 3.7) AV Cusp: 1.5 cm (1.5 - 2.6) LA Diam: 3.5 cm (2.7 - 3.8) EPSS: 0.3 cm MV E Jean: 0.90 m/s MV DecT: 202 ms MV A Jean: 0.76 m/s MV E/A Ratio: 1.19 RAP: 5.00 mmHg RVSP: 35.73 mmHg MV EF SLOPE: 95.44 mm/s (70 - 150) MV EXCURSION: 1.50 cm (> 18.000) FINDINGS -------- Sinus rhythm. This was a technically adequate study. The left ventricular size is normal. There is borderline concentric left ventricular hypertrophy. Overall left ventricular systolic function is normal with, an EF between 55 - 60 %. The right ventricle is normal in size and function. Normal LA size by volume 22+/-6 ml/m2. RA appears enlarged. Aortic valve is trileaflet and is mildly thickened. There is no evidence of aortic regurgitation. There is no evidence of aortic stenosis. The mitral valve leaflets are mildly thickened. There is trace to mild mitral regurgitation. Mild tricuspid regurgitation present. There is borderline pulmonary hypertension. The right ventr icular systolic pressure, as measured by Doppler, is 35.73mmHg. Trace/mild (physiologic) pulmonic regurgitation. The aortic root size is normal. Normal inferior vena cava with normal inspiratory collapse consistent with estimated right atrial pre ssure of 5 mmHg. There is a small, generalized pericardial effusion present. CONCLUSIONS -------- 1. Sinus rhythm. 2. This was a technically adequate study. 3. The left ventricular size is normal. 4. There is borderline concentric left ventricular hypertrophy. 5. Overall left ventricular systolic function is normal with, an EF between 55 - 60 %. 6. Normal LA size by volume 22+/-6 ml/m2. 7. RA appears enlarged. 8. Aortic valve is trileaflet and is mildly thickened. 9. The mitral valve leaflets are mildly thickened. 10. There is trace to mild mitral regurgitation. 11. Mild tricuspid regurgitation present. 12. There is borderline pulmonary hypertension. 13. The right ventricular systolic pressure, as measured by Doppler, is 35.73mmHg. 14. Trace/mild (physiologic) pulmonic regurgitation. 15. The aortic root size is normal. 16. There is a small, generalized pericardial effusion present. SERVICE WRITER ADVISOR: Alireza Mckenzie RDCS
== END 2017-10-31 13:57 | disposition home health service (06) | DRG 494 ==
LOC: EC 17:33 → 3SUR 21:09 → 6SEL 10-29 19:48 → OBSVTOIN 10-30 13:58
PROVIDERS: ADMIT Orthopaedic Surgery; ATTEND Orthopaedic Surgery
PROC: 0QSG04Z Reposition Right Tibia with Internal Fixation Device, Open Approach (ICD-10-PCS; principal; 2017-10-30)
PROC: 0QSJ04Z Reposition Right Fibula with Internal Fixation Device, Open Approach (ICD-10-PCS; principal; 2017-10-30)
DX: S82.851A Displaced trimalleolar fracture of right lower leg, initial encounter for closed fracture (principal); I48.0 Paroxysmal atrial fibrillation; K22.2 Esophageal obstruction; D64.9 Anemia, unspecified; E11.9 Type 2 diabetes mellitus without complications; E66.9 Obesity, unspecified; F32.9 Major depressive disorder, single episode, unspecified; I10 Essential (primary) hypertension; K21.9 Gastro-esophageal reflux disease without esophagitis; Z79.4 Long term (current) use of insulin; Z79.82 Long term (current) use of aspirin; Z79.899 Other long term (current) drug therapy; Z87.891 Personal history of nicotine dependence; W18.09XA Striking against other object with subsequent fall, initial encounter
CPT/HCPCS: 36415; 71045; 72070; 72170; 80048; 80053; 83036; 83735; 84439; 84443; 85025; 93005; 93306

== ENCOUNTER → 2019-02-18 | Outpatient (CLI) | payer OTHER ==
[2019-02-18 14:36] LABS: Calcium 9.6 mg/dL (8.4-10.2); Potassium 4.2 mmol/L (3.5-5.1)
--- NOTE | 2019-02-18 16:59 | CT ---
EXAMINATION TYPE: CT angio neck DATE OF EXAM: 02/18/2019 COMPARISON: None HISTORY: 63-year-old female Left side carotid stenosis. TECHNIQUE: Contiguous axial scanning of the neck performed with IV Contrast, patient injected with 50 ml mL of Isovue 370. Coronal/sagittal MIP reconstructions performed. 3-D reconstructions generated on a dedicated independent workstation. CT DLP: 233.6 mGycm Automated exposure control for dose reduction was used. FINDINGS: 1 cm nodule left lobe of the thyroid gland can be further evaluated with dedicated thyroid ultrasound . Bilateral palatine tonsillar hypertrophy with bilateral tonsillar calcifications suggesting sequela o f prior infection. Moderate to severe mucosal thickening left maxillary sinus.. Conventional arch vessel branching anatomy. Brachiocephalic artery and right common carotid artery are patent. The right internal carotid artery remains widely patent. Left common carotid artery is patent. There is also focal severe 80% stenosis of the proximal left ca rotid bulb. The remainder of the left internal carotid artery remains patent. There is moderate to severe atherosclerotic narrowing at the origin of the left vertebral artery. Oth erwise, the vertebral arteries are codominant and patent throughout the course. IMPRESSION: 1. SEVERE FOCAL 80% STENOSIS OF THE PROXIMAL LEFT CAROTID BULB. 2. MODERATE TO SEVERE ATHEROSCLEROTIC NARROWING AT THE LEFT VERTEBRAL ARTERY ORIGIN. 3. A 1 CM NODULE WITHIN THE LEFT LOBE OF THE THYROID GLAND CAN BE FURTHER EVALUATED WITH DEDICATED TH YROID ULTRASOUND. 4. BILATERAL PALATINE TONSILLAR HYPERTROPHY WITH CALCIFICATIONS SUGGESTING SEQUELA OF PRIOR INFECTION .
== END | disposition home or self-care (01) ==
LOC: RADCTMAIN 13:42
PROVIDERS: ATTEND Internal Medicine Clinical Cardiac Electrophysiology
DX: I65.22 Occlusion and stenosis of left carotid artery (principal); I65.02 Occlusion and stenosis of left vertebral artery; I67.2 Cerebral atherosclerosis; J35.1 Hypertrophy of tonsils; E04.1 Nontoxic single thyroid nodule
CPT/HCPCS: 80048; 70498; 36415; Q9967

== ENCOUNTER 2019-08-06 07:28 | Inpatient (IN) | payer MEDICARE ==
[~2019-08-06 07:28] MED LIST changes: -ASPIRIN 325 MG TAB PO SCH; +ASPIRIN 325 MG TAB PO STA; -ATORVASTATIN 40 MG TAB PO SCH; -ATROPINE SULFATE 0.1 MG/ML 10ML SYRINGE IV PRN; -CLOPIDOGREL 75 MG TAB PO SCH; +CLOPIDOGREL 75 MG TAB PO STA; -MAG HYDROX/AL HYDROX/SIMETH 30 ML CUP PO PRN; +NITROGLYCERIN SL TABS 0.4 MG TAB SUBLINGUAL PRN; -RX INFO: IV CONTRAST WAS GIVEN 1 EACH MISC MISCELLANE PRN; -SODIUM CHLORIDE 0.9% 1,000 ML IV SCH; +SODIUM CHLORIDE 0.9% 1,000 ML in EMPTY BAG 1 BAG IV ONE
--- NOTE | 2019-08-06 07:47 | XR ---
EXAMINATION TYPE: XR chest 2V DATE OF EXAM: 08/06/2019 COMPARISON: NONE HISTORY: Precarotid stent TECHNIQUE: Frontal and lateral views of the chest are obtained. FINDINGS: There is no focal air space opacity, pleural effusion, or pneumothorax seen. The cardiac silhouette size is within normal limits. New mild compression deformity of approximately T6 in compar tc to the exam of 10/30/2017. The osseous structures are intact. IMPRESSION: 1. No acute cardiopulmonary process. 2. Age-indeterminate mild compression deformity of approximately T6 not seen on the prior of 10/30/2017 .
[2019-08-06 08:17] LABS: Glucose,Whole Blood 412 mg/dL (75-99)
[2019-08-06] MEDS ORDERED: INSULIN ASPART (NovoLOG) 100 UNIT/ML VIAL SQ ONE (08:19)
[2019-08-06] MEDS ORDERED: LIDOCAINE 1% INJ 10MG/ML (20 ML MDV) SQ ONE (09:45)
[2019-08-06] MEDS ORDERED: HEPARIN SODIUM 1,000 UN/ML (10ML VL) IV ONE (09:54)
[2019-08-06] MEDS ORDERED: IOPAMIDOL-250 100ML BTL INTRAARTER ONE ×2 (09:57→10:32)
[2019-08-06] MEDS ORDERED: CLOPIDOGREL 75 MG TAB PO ONE (10:42)
--- NOTE | 2019-08-06 11:06 | LTR ---
August 06, 2019 Re: Yesenia Barnes Dear Dr. Sarah: Ms. Yesenia Barnes underwent today successful stenting of the left carotid artery with good angiographic results and without any complication. I want to thank you for allowing us to participate in her care and please do not hesitate to call if you have any question or concern. Sincerely, MD REJI Albrecht / SUSYN: [id number] /
[2019-08-06 11:11] LABS: Glucose,Whole Blood 261 mg/dL (75-99)
--- NOTE | 2019-08-06 11:18 | AN ---
ANGIOGRAPHY REPORT DATE OF SERVICE: August 06, 2019 PERFORMING PHYSICIAN: Igor Allen MD. PROCEDURE PERFORMED: 1. An aortic arch angiogram. 2. Selective left common and internal carotid artery angiogram. 3. Successful stenting of the left internal carotid artery using 8-6 x 30 mm Xact stent with an excellent angiographic result and reduction of stenosis from 90% to 0%. 4. Intracranial angiogram. INDICATION: This is a pleasant 64-year-old female patient who sees Dr. Epperson as well as Dr. Sarah who was diagnosed recently with severe disease involving the left internal carotid artery by CTA was about 80%. She was brought today to undergo revascularization of the left internal carotid artery. APPROACH: Right common femoral artery. COMPLICATION: None. LEVEL OF SEDATION: No sedation was given during the procedure, but the procedure length was 56 minutes. PROCEDURE DESCRIPTION: After obtaining an informed consent, the patient was brought to the cardiac biology laboratory assistant. The right common femoral artery was cannulated using micropuncture technique and a micropuncture wire passed easily then I placed a 6-[place] sheath 11 cm at the right common femoral artery. After that, I did advance an 0.035 [place] Advantage wire to the ascending aorta. I did after that an aortic arch angiogram using 5-[place] pigtail catheter which was placed in the ascending aorta and the angiogram was performed using a power injection under digital subtraction. It did reveal type 1 to type 2 aortic arch. At that point, I did exchange my 11 cm sheath into 90 cm shuttle sheath using 0.035 [place] Advantage wire and the tip of the shuttle sheath was positioned in the proximal descending aorta. After that I did select the left common carotid artery using JB2 catheter. Subsequently I did wire the left common and left internal carotid artery using 0.035 [place] Advantage wire. After that, I did advance the JB2 catheter over the wire to the proximal left common carotid artery and then I did telescope the long shuttle sheath over the JB2 and the wire to the proximal left common carotid artery. At that point, I did pull the wire and the JB2 catheter out. I did selective left common and left internal carotid artery angiogram which revealed calcified eccentric lesion involving the left common carotid artery by the bifurcation into internal and external. Please note that at the beginning of the procedure and after the short sheath was placed, I did give the patient heparin, [id number] units of heparin IV given. I did after that place a filter wire in the left internal carotid artery distal to the lesion. After that, I did predilatation using 4 mm balloon before I deployed 8-6 x 30 mm Xact stent under fluoroscopy guidance. The stent was post dilated using 5 mm balloon. Continuous monitoring of the heart rate and blood pressure was achieved throughout the procedure. The final angiogram showed excellent angiographic results and the filter was retrieved. By the end, I did intracranial angiogram as well. After that I did exchange my long sheath into short sheath using 0.035 [place] Advantage wire and I did selective right common femoral artery angiogram. The procedure was completed without any complication. POSTPROCEDURE MANAGEMENT: 1. Dual antiplatelet therapy. 2. Risk factors modifications. 3. Follow up with the patient. MMODL / IJN: [id number] /
[2019-08-06] MEDS ORDERED: RX INFO: IV CONTRAST WAS GIVEN 1 EACH MISC MISCELLANE PRN (11:39)
[2019-08-06 14:53] VITALS: BMI 27.3
[2019-08-06 16:35] LABS: Glucose,Whole Blood 381 mg/dL (75-99)
[2019-08-06] MEDS: INSULIN ASPART (NovoLOG) 100 UNIT/ML VIAL SQ SCH ×2 (16:45→20:53)
[2019-08-06] MEDS ORDERED: INSULN ASP PRT/INSULIN ASPART 100 UNIT/ML 10 ML VIAL SQ SCH (17:30)
[2019-08-06 20:47] LABS: Glucose,Whole Blood 278 mg/dL (75-99)
[2019-08-06] MEDS ORDERED: ATORVASTATIN 20 MG TAB PO SCH (21:00)
[2019-08-07 06:52] LABS: Glucose,Whole Blood 346 mg/dL (75-99)
[2019-08-07] MEDS: INSULIN ASPART (NovoLOG) 100 UNIT/ML VIAL SQ SCH ×2 (07:01→11:40)
[2019-08-07] MEDS ORDERED: INSULN ASP PRT/INSULIN ASPART 100 UNIT/ML 10 ML VIAL SQ SCH (07:30)
[2019-08-07] MEDS ORDERED: CLOPIDOGREL 75 MG TAB PO SCH (09:00)
[2019-08-07] MEDS ORDERED: ASPIRIN 81 MG PO SCH (09:00)
[2019-08-07 10:52] LABS: Basophils % (A) 1 %; Eosinophils # (A) 0.1 k/uL (0-0.7); Eosinophils % (A) 2 %; HCT 33.9 % (34.0-46.0); HGB 11.2 gm/dL (11.4-16.0); Lymphocytes # (A) 0.9 k/uL (1.0-4.8); Lymphocytes % (A) 17 %; MCH 29.6 pg (25.0-35.0); MCV 89.5 fL (80.0-100.0); Mean Platelet Volume 9.2; Monocytes # (A) 0.3 k/uL (0-1.0); Monocytes % (A) 5 %; Neutrophils # (A) 3.7 k/uL (1.3-7.7); Neutrophils % (A) 74 %; Platelet Count 233 k/uL (150-450); RBC 3.78 m/uL (3.80-5.40); RDW 13.2 % (11.5-15.5)
[2019-08-07 11:03] LABS: Calcium 9.5 mg/dL (8.4-10.2); Potassium 4.2 mmol/L (3.5-5.1)
[2019-08-07 11:36] LABS: Glucose,Whole Blood 286 mg/dL (75-99)
[2019-08-07 12:09] VITALS: BP 119/51; PULSE 64; RESP 19; TEMP 98.5
--- NOTE | 2019-08-07 12:25 | P.CONS ---
History of Present Illness - Reason for Consult Consult date: 08/07/19 hyperglycemia Requesting physician: Igor Allen - Chief Complaint Hyperglycemia - History of Present Illness 64-year-old femalewith PMH of hypertension, paroxysmal atrial fibrillation, diabetes mellitus, obesity, carotid stenosis presents to the hospital elective procedure. She underwent left carotid stenting under Dr. Allen. [facility] has been consulted for management of her hyperglycemia. Patient was seen and examined. Patient reports being diagnosed with diabetes mellitus in 2004. She was started on insulin in 2004 but has stopped using it in the last 6 months due to insurance reasons and inability to afford her insulin. She was initially on Lantus but got switched to Levemir and now Basaglar. Patient states that she was on 36 units of Basaglar at bedtime. Patient reports that when she was on insulin her fasting blood sugar would be from 135 to 150s. Since she has stopped using insulin over the last 6 months, her FBS ranges between 300-400. She denies any hypoglycemic episodes on 36 units of Basaglar. Patient denies headache, lower Wong edema, nausea or vomiting, fever or chills, cough, chest pain or shortness of breath, palpitations, changes in urination or bowel habits. No changes in appetite or weight. Review of Systems Pertinent positives and negatives as discussed in HPI, a complete review of systems was performed and all other systems are negative. Past Medical History Past Medical History: Atrial Fibrillation, Diabetes Mellitus, GERD/Reflux, Hyperlipidemia, Hypertension Additional Past Medical History / Comment(s): TIA , POSSIBLE [place] YEARS AGO- UNKNOWN DATE PER PATIENT History of Any Multi-Drug Resistant Organisms: None Reported Past Surgical History: Tubal Ligation Additional Past Surgical History / Comment(s): EGD X 3 last-12/08/14 Past Anesthesia/Blood Transfusion Reactions: Motion Sickness Smoking Status: Former smoker - Past Family History Mother Family Medical History: Cancer Additional Family Medical History / Comment(s): SKIN CANCER Father Family Medical History: Cancer Medications and Allergies Home Medications Medication Instructions Recorded Confirmed Type Aspirin 81 mg PO DAILY 10/04/14 08/06/19 History Omeprazole [PriLOSEC] 20 mg PO AC-BID 10/28/17 08/06/19 History PARoxetine HCL [Paxil] 40 mg PO DAILY 10/28/17 08/06/19 History Metoprolol Tartrate [Lopressor] 25 mg PO BID #60 tablet 10/31/17 08/06/19 Rx Atorvastatin [Lipitor] 20 mg PO HS 08/04/19 08/06/19 History Clopidogrel [Plavix] 75 mg PO DAILY 08/04/19 08/06/19 History Losartan Potassium [Cozaar] 100 mg PO DAILY 08/04/19 08/06/19 History Insulin Glargine,Hum.rec.anlog 40 unit SQ 08/06/19 History [Basaglar Kwikpen U-100] Allergies Allergy/AdvReac Type Severity Reaction Status Date / Time No Known Allergies Allergy Verified 08/04/19 12:46 Physical Exam Vitals: Vital Signs Temp Pulse Resp BP Pulse Ox 08/07/19 10:00 86 16 115/53 97 08/07/19 09:00 86 18 110/48 93 L 08/07/19 08:00 98.2 F 94 16 121/50 98 08/07/19 07:01 70 13 125/48 98 08/07/19 06:00 79 15 125/48 92 L 08/07/19 05:00 90 24 114/40 96 08/07/19 04:00 98.0 F 71 11 L 112/41 99 08/07/19 03:00 71 14 104/37 98 08/07/19 02:00 71 18 103/56 98 08/07/19 01:00 71 16 100/55 98 08/07/19 00:30 69 14 114/52 98 08/07/19 00:00 98.6 F 71 16 115/47 98 08/06/19 23:30 68 16 116/49 98 08/06/19 23:00 76 17 117/49 91 L 08/06/19 22:30 76 11 L 112/50 93 L 08/06/19 22:00 81 9 L 117/49 97 08/06/19 21:30 79 19 115/66 96 08/06/19 21:00 79 20 116/44 94 L 08/06/19 20:30 68 18 107/49 97 08/06/19 20:00 98.7 F 79 20 106/38 97 08/06/19 19:30 79 19 110/55 96 08/06/19 19:00 70 15 98/49 92 L 08/06/19 18:50 75 16 98/49 92 L 08/06/19 18:40 76 7 L 109/44 96 08/06/19 18:30 77 19 108/52 94 L 08/06/19 18:20 89 27 H 108/52 91 L 08/06/19 18:10 82 13 116/44 96 08/06/19 18:00 84 21 112/49 97 08/06/19 17:50 81 18 87/77 94 L 08/06/19 17:40 80 24 93/49 92 L 08/06/19 17:30 79 24 109/44 91 L 08/06/19 17:20 75 14 109/44 93 L 08/06/19 17:10 78 18 103/39 94 L 08/06/19 17:00 74 16 107/41 96 08/06/19 16:50 76 11 L 107/41 96 08/06/19 16:40 75 7 L 98/50 96 08/06/19 16:30 83 34 H 95/48 96 08/06/19 16:20 74 10 L 95/48 97 08/06/19 16:10 78 9 L 91/50 97 08/06/19 16:00 98.2 F 77 15 100/42 94 L 08/06/19 15:50 89 14 100/42 97 08/06/19 15:40 81 10 L 107/48 94 L 08/06/19 15:30 74 12 102/45 95 08/06/19 15:20 77 28 H 102/45 93 L 08/06/19 15:10 80 13 101/29 96 08/06/19 15:00 77 19 105/60 94 L 08/06/19 14:50 75 23 105/60 95 08/06/19 14:40 77 6 L 71/33 96 08/06/19 14:30 76 18 94/44 95 08/06/19 14:20 78 11 L 94/44 97 08/06/19 14:10 77 14 105/46 96 08/06/19 14:00 79 23 108/42 95 08/06/19 13:50 81 22 108/42 93 L 08/06/19 13:40 80 22 95/54 92 L 08/06/19 13:30 80 12 117/51 96 08/06/19 13:20 74 17 117/51 96 08/06/19 13:10 79 13 94/53 94 L 08/06/19 13:00 75 23 101/54 96 08/06/19 12:50 75 9 L 101/54 93 L 08/06/19 12:40 81 37 H 106/59 97 08/06/19 12:30 76 18 101/64 97 08/06/19 12:20 72 12 101/64 97 08/06/19 12:10 75 16 108/58 96 08/06/19 12:00 98.4 F 69 11 L 91/57 96 08/06/19 11:50 71 13 91/57 96 08/06/19 11:40 76 15 120/53 95 08/06/19 11:30 73 15 115/64 94 L 08/06/19 11:20 98.5 F 74 17 115/64 93 L Intake and Output 08/06/19 08/07/19 08/07/19 22:59 06:59 14:59 Intake Total 615 Output Total 0 1 0 Balance 615 -1 0 Intake: IV 375 Sodium Chloride 0.9% 1, 375 000 ml In Empty Bag 1 bag @ 1 ML/KG/HR 78.018 mls/ hr IV .[id number] ONE Rx#: [id number] Oral 240 Output: Urine 0 1 0 Other: Voiding Method Bedpan Bedside Commode Toilet # Voids 1 1 # Bowel Movements 1 Weight 76.3 kg General: [non toxic], [no distress], [appears at stated age] Derm: [warm], [dry] Head: [atraumatic], [normocephalic], [symmetric] Eyes: [EOMI], [no lid lag], [anicteric sclera] Mouth: [no lip lesion], [mucus membranes moist] Cardiovascular: [S1S2 reg], [no murmur], [positive DP pulse bilateral], Lungs: [CTA bilateral], [no rhonchi, no rales] , [no accessory muscle use] Abdominal: [soft], [ nontender to palpation], [no guarding], [no appreciable organomegaly] Ext: [no gross muscle atrophy], [no edema], [no contractures] Neuro: [no focal neuro deficits] Psych: [Alert], [oriented], [appropriate affect] Results CBC & Chem 7: 08/07/19 10:39 08/07/19 10:39 Labs: Abnormal Lab Results - Last 24 Hours (Table) 08/06/19 08/06/19 08/06/19 Range/Units 11:10 16:34 20:45 RBC (3.80-5.40) m/uL Hgb (11.4-16.0) gm/dL Hct (34.0-46.0) % Lymphocytes # (1.0-4.8) k/uL Creatinine (0.52-1.04) mg/dL Glucose (74-99) mg/dL POC Glucose (mg/dL) 261 H 381 H 278 H (75-99) mg/dL 08/07/19 08/07/19 08/07/19 Range/Units 06:50 10:39 10:39 RBC 3.78 L (3.80-5.40) m/uL Hgb 11.2 L (11.4-16.0) gm/dL Hct 33.9 L (34.0-46.0) % Lymphocytes # 0.9 L (1.0-4.8) k/uL Creatinine 1.14 H (0.52-1.04) mg/dL Glucose 346 H (74-99) mg/dL POC Glucose (mg/dL) 346 H (75-99) mg/dL Assessment and Plan Assessment: Diabetes mellitus with hyperglycemia Carotid stenosis Hypertension Anemia Patient reports A1c of 11 point something. She has not been on insulin over the last 6 months. Previously on Basaglar 36 units. States that her fasting blood sugar is usually in the 3 to 400s. This hyperglycemia is probably her baseline.she has been treated with 7030 insulin 24 units in the morning and 12 units at night. Given her weight of 76 kg, her total daily insulin dose based on weight in kilograms 0.4 should be 30 units. patient reports being unable to obtain insulin due to its high cost.at this time, I think that it is appropriate to start the patient on 7030 insulin 15 units in the morning and at bedtime. We will avoid aggressively treating her blood glucose in order to avoid hypoglycemic events. She has been instructed to check her fasting blood sugars and blood glucose before meals and 2 hour after meals. She should take her blood glucose log or glucometer to her PCP for follow-up for further titration of her insulin. Patient is advised of hypoglycemic symptoms. She has a glucometer at home including test strips. She has used needles and syringes in the past. Continue the patient on aspirin, Lipitor and Plavix for her carotid stenosis post stenting. Patient should resume her home medication of metoprolol and losartan for the treatment of hypertension. Her hemoglobin is 11.2. Her anemia is normocytic. Unknown significance. Patient will need to follow this up in the outpatient setting. Thank you for this consultation. Please call with any additional questions or concerns.
--- NOTE | 2019-08-07 13:42 | P.DS ---
Providers Date of admission: 08/06/19 07:28 Attending physician: Igor Allen Consults: 08/06/19 11:39 Consult Physician Routine Consulting Provider: Igor Allen Consult Reason/Comments: Post Interventional patient Do you want consulting provider notified?: Already Contacted 08/07/19 10:32 Consult Physician Stat Consulting Provider: Tessie Bartholomew Consult Reason/Comments: insulin orders for discharge Do you want consulting provider notified?: Yes Primary care physician: [facility] Course: This is pleasant 64-year-old female patient who sees Dr. Epperson in the office on regular basis was diagnosed recently with critical disease involving the left internal carotid artery. She was admitted to the hospital yesterday and underwent successful stenting of the left internal carotid artery with an excellent angiographic results and without any complication from a right groin approach. She was seen this morning. She remains asymptomatic from the cardiovascular standpoint of view. The right groin is soft and nontender was some bruises. She is on dual antiplatelet therapy as well as a statin. Her glucose was elevated this morning and she is on metformin which we cannot rest art because of the IV contrast given to her. I am going to consult internal medicine to see the patient and hopefully she can be discharged today on insulin and follow-up with Dr. aly in the office as an outpatient. Plan - Discharge Summary Discharge Rx Participant: Yes New Discharge Prescriptions: [place], Insulin Disposable [Bd Ultra-Fine Pen Needle 4mm 32g] 1 each MC BID #60 dis.needle Insulin NPH/Reg Insulin 70/30 [humuLIN 70/30 VIAL] 15 unit SQ AC-BID #3 vial Syringe-Needle,Insulin,0.5 ml [INSULIN SYRINGE 29G 1/2" 0.5ML] 1 syr SQ DIRECTED #60 each Continue Aspirin 81 mg PO DAILY Omeprazole [PriLOSEC] 20 mg PO AC-BID PARoxetine HCL [Paxil] 40 mg PO DAILY Metoprolol Tartrate [Lopressor] 25 mg PO BID #60 tablet Atorvastatin [Lipitor] 20 mg PO HS Losartan Potassium [Cozaar] 100 mg PO DAILY Clopidogrel [Plavix] 75 mg PO DAILY Discontinued metFORMIN HCL [Glucophage] 1,000 mg PO DAILY Insulin Glargine,Hum.rec.anlog [[place] U-100] 40 unit SQ Discharge Medication List Aspirin 81 mg PO DAILY 02/10/15 [History] Omeprazole [PriLOSEC] 20 mg PO AC-BID 10/28/17 [History] PARoxetine HCL [Paxil] 40 mg PO DAILY 10/28/17 [History] Metoprolol Tartrate [Lopressor] 25 mg PO BID #60 tablet 10/31/17 [Rx] Atorvastatin [Lipitor] 20 mg PO HS 08/04/19 [History] Clopidogrel [Plavix] 75 mg PO DAILY 08/04/19 [History] Losartan Potassium [Cozaar] 100 mg PO DAILY 08/04/19 [History] Insulin NPH/Reg Insulin 70/30 [humuLIN 70/30 VIAL] 15 unit SQ AC-BID #3 vial 08/07/19 [Rx] [place], Insulin Disposable [Bd Ultra-Fine Pen Needle 4mm 32g] 1 each MC BID #60 dis.needle 08/07/19 [Rx] Syringe-Needle,Insulin,0.5 ml [INSULIN SYRINGE 29G 1/2" 0.5ML] 1 syr SQ DIRECTED #60 each 08/07/19 [Rx] Follow up Appointment(s)/Referral(s): Justin Epperson MD [STAFF PHYSICIAN] - 08/11/19 2:45 pm Adalberto Sarah MD [Primary Care Provider] - 1-2 Days (Please call Friday to make an appointment for 1-2 days) Patient Instructions/Handouts: Diabetic Ketoacidosis (GEN), Foot Care for People with Diabetes (GEN), Basic Carbohydrate Counting (GEN), Meal Planning with Diabetes Exchanges (GEN), Diabetic Retinopathy (GEN), Diabetic Peripheral Neuropathy (GEN), Managing Diabetes During Sick Days (GEN), Diabetic Foot Ulcers (GEN), Diabetic Kidney Disease (GEN), Coronary Intravascular Stent Placement (DC), Diabetes and Your Skin (GEN), Diabetes and Exercise (GEN) Activity/Diet/Wound Care/Special Instructions: Check blood sugar every morning, two hours after meals, and before bedtime Do not skip meals Carry something sweet with you to treat low blood sugar
--- NOTE | 2019-08-09 12:02 | IR ---
Fluoroscopy HISTORY: Left carotid stenosis 13.1 minutes fluoroscopy time supplied to the referring clinician. 293 intraoperative C-arm images d ocument the procedure. See dictated report from cardiology.
== END 2019-08-07 14:41 | disposition home or self-care (01) | DRG 36 ==
LOC: 2ORMAIN 07:28 → 2SICU 10:49
PROVIDERS: ADMIT Internal Medicine Interventional Cardiology; ATTEND Internal Medicine Interventional Cardiology
PROC: B3141ZZ Fluoroscopy of Left Common Carotid Artery using Low Osmolar Contrast (ICD-10-PCS; principal; 2019-08-06 09:00)
PROC: 037L3DZ Dilation of Left Internal Carotid Artery with Intraluminal Device, Percutaneous Approach (ICD-10-PCS; principal; 2019-08-06 09:00)
PROC: B3171ZZ Fluoroscopy of Left Internal Carotid Artery using Low Osmolar Contrast (ICD-10-PCS; principal; 2019-08-06 09:00)
DX: I65.22 Occlusion and stenosis of left carotid artery (principal); E11.65 Type 2 diabetes mellitus with hyperglycemia; I10 Essential (primary) hypertension; I48.0 Paroxysmal atrial fibrillation; E78.5 Hyperlipidemia, unspecified; D64.9 Anemia, unspecified; F32.9 Major depressive disorder, single episode, unspecified; K21.9 Gastro-esophageal reflux disease without esophagitis; Z79.02 Long term (current) use of antithrombotics/antiplatelets; Z79.82 Long term (current) use of aspirin; Z79.899 Other long term (current) drug therapy; Z80.8 Family history of malignant neoplasm of other organs or systems; Z79.4 Long term (current) use of insulin; Z86.73 Personal history of transient ischemic attack (TIA), and cerebral infarction without residual deficits; Z87.891 Personal history of nicotine dependence; Z82.49 Family history of ischemic heart disease and other diseases of the circulatory system; I25.2 Old myocardial infarction; Z98.51 Tubal ligation status; Z98.890 Other specified postprocedural states
CPT/HCPCS: 37215; 71046; 80048; 85025; 85347; 93005

== ENCOUNTER → 2019-08-06 | Outpatient (CLI) | payer MEDICARE ==
[~2019-08-06] MED LIST: ASPIRIN 325 MG TAB PO SCH; ATORVASTATIN 40 MG TAB PO SCH; ATROPINE SULFATE 0.1 MG/ML 10ML SYRINGE IV PRN; CLOPIDOGREL 75 MG TAB PO SCH; MAG HYDROX/AL HYDROX/SIMETH 30 ML CUP PO PRN; RX INFO: IV CONTRAST WAS GIVEN 1 EACH MISC MISCELLANE PRN; SODIUM CHLORIDE 0.9% 1,000 ML IV SCH
[2019-08-06 07:49] LABS: HCT 40.2 % (34.0-46.0); HGB 13.2 gm/dL (11.4-16.0); MCHC 32.9 g/dL (31.0-37.0); MCV 88.1 fL (80.0-100.0); Mean Platelet Volume 7.2; Platelet Count 262 k/uL (150-450); RBC 4.56 m/uL (3.80-5.40); WBC 5.4 k/uL (3.8-10.6)
== END | disposition home or self-care (01) ==
LOC: LABPAT 07:04
PROVIDERS: ATTEND Internal Medicine Interventional Cardiology
DX: Z01.812 Encounter for preprocedural laboratory examination (principal); I65.22 Occlusion and stenosis of left carotid artery
CPT/HCPCS: 36415; 80051; 82565; 84520; 85027

== ENCOUNTER 2024-03-08 18:31 | Emergency (ER) | payer MEDICARE, OTHER ==
[2024-03-08 18:42] VITALS: TEMP 97.9
[2024-03-08] MEDS: ONDANSETRON 4 MG/2 ML VIAL IVP STA (19:01)
[2024-03-08] MEDS: HYDROmorphone 1 MG/ML 1 ML SYRINGE IVP STA (19:02)
--- NOTE | 2024-03-08 19:13 | ED ---
Fall HPI - General Source: patient, EMS, RN notes reviewed Mode of arrival: EMS <Clau Collins - Last Filed: 03/08/24 23:43> <Mariangel Garudno - Last Filed: 03/09/24 12:01> - General Chief Complaint: Fall Stated Complaint: L Arm Injury-Fall Time Seen by Provider: 03/08/24 19:12 - History of Present Illness Initial Comments: 68 year old female presented to the ER via EMS with a chief complaint of a fall. Patient reports she was walking in her kitchen and accidentally tripped on her slippers falling on her right arm. She denies any head injury, loss of consciousness. She does take Plavix and baby ASA daily. (Clau Collins) - Related Data Home Medications Medication Instructions Recorded Confirmed Aspirin 81 mg PO DAILY 10/04/14 05/13/23 Omeprazole [PriLOSEC] 20 mg PO AC-SUPPER 10/28/17 05/13/23 Atorvastatin [Lipitor] 20 mg PO HS 08/04/19 05/13/23 Clopidogrel [Plavix] 75 mg PO DAILY 08/04/19 05/13/23 Cholecalciferol [Vitamin D3 (125 125 mcg PO DAILY 05/08/23 05/13/23 Mcg = 5000 Iu)] Ferrous Sulfate [Iron (65 MG 1 tab PO DAILY 05/08/23 05/13/23 Elemental)] Insulin Glargine,Hum.rec.anlog 55 units SQ HS 05/08/23 05/13/23 [Lantus Solostar Pen] Pioglitazone [Actos] 30 mg PO DAILY 05/08/23 05/13/23 Sertraline [Zoloft] 100 mg PO DAILY 05/08/23 05/13/23 Valsartan [Diovan] 320 mg PO DAILY 05/08/23 05/13/23 Zinc Gluconate [Zinc] 50 mg PO DAILY 05/08/23 05/13/23 amLODIPine [Norvasc] 5 mg PO DAILY 05/08/23 05/13/23 carvediloL 12.5 mg PO BID 05/08/23 05/13/23 glipiZIDE [Glucotrol] 10 mg PO DAILY 05/08/23 05/13/23 Previous Rx's Medication Instructions Recorded HYDROcodone/APAP 5-325MG [[place] 5] 1 each PO Q6HR PRN #12 tab 03/08/24 Allergies Allergy/AdvReac Type Severity Reaction Status Date / Time No Known Allergies Allergy Verified 03/08/24 18:42 Review of Systems ROS Other: All systems not noted in ROS Statement are negative. <Clau Collins - Last Filed: 03/08/24 23:43> ROS Statement: Those systems with pertinent positive or pertinent negative responses have been documented in the HPI. Past Medical History Past Medical History: Atrial Fibrillation, CVA/TIA, Diabetes Mellitus, GERD/Reflux, Hyperlipidemia, Hypertension, Seizure Disorder Additional Past Medical History / Comment(s): TIA years ago-no residual effects, couple seizures years ago-felt to be due to very elevated blood sugar @that time, POSSIBLE [place] YEARS AGO, unsure when, hx. of a-fib years ago after a procedure-not currently that she knows of, occasional dysphagia w/meats, has to be dilated in past, decreased kidney function Last Myocardial Infarction Date:: unsure History of Any Multi-Drug Resistant Organisms: None Reported Past Surgical History: Orthopedic Surgery, Tubal Ligation Additional Past Surgical History / Comment(s): EGD X 3, ORIF right ankle Past Anesthesia/Blood Transfusion Reactions: Previous Problems w/ Anesthesia, Motion Sickness Additional Past Anesthesia/Blood Transfusion Reaction / Comment(s): after endo procedure years ago had brief issue w/atrial fib Date of Last Stent Placement:: 2019 in neck Past Psychological History: Depression Smoking Status: Former smoker Past Alcohol Use History: None Reported Past Drug Use History: None Reported - Past Family History Mother Family Medical History: Cancer Additional Family Medical History / Comment(s): SKIN CANCER Father Family Medical History: Cancer <Clau Collins - Last Filed: 03/08/24 23:43> General Exam Limitations: no limitations <Clau Collins - Last Filed: 03/08/24 23:43> Course Vital Signs 03/08/24 03/08/24 03/08/24 18:37 20:34 20:40 Temperature 97.9 F Pulse Rate 93 101 H 100 Respiratory 26 H 16 6 L Rate Blood Pressure 154/77 154/77 169/83 O2 Sat by Pulse 98 97 95 Oximetry 03/08/24 03/08/24 03/08/24 20:50 21:00 21:44 Temperature Pulse Rate 97 100 100 Respiratory 13 18 18 Rate Blood Pressure 178/76 169/73 177/84 O2 Sat by Pulse 94 L 97 95 Oximetry 03/08/24 03/08/24 03/08/24 21:46 21:51 22:00 Temperature Pulse Rate 91 96 96 Respiratory 14 15 14 Rate Blood Pressure 105/84 171/70 159/81 O2 Sat by Pulse 96 95 96 Oximetry 03/08/24 03/08/24 03/08/24 22:15 22:30 22:45 Temperature Pulse Rate 95 97 93 Respiratory 14 15 15 Rate Blood Pressure 164/70 166/63 137/73 O2 Sat by Pulse 96 97 96 Oximetry 03/08/24 03/08/24 03/08/24 23:00 23:15 23:30 Temperature Pulse Rate 92 91 92 Respiratory 17 15 16 Rate Blood Pressure 137/73 165/74 170/68 O2 Sat by Pulse 97 97 95 Oximetry 03/09/24 03/09/24 00:00 00:15 Temperature Pulse Rate 92 90 Respiratory 16 16 Rate Blood Pressure 139/50 146/60 O2 Sat by Pulse 95 95 Oximetry Procedures - Orthopedic Joint Reduction Joint #1 Consent Obtained: verbal consent, written consent Side: left Joint Reduction Location: shoulder Analgesia: procedural sedation Shoulder Technique Used (if applicable): traction/counter-traction, scapula manipulation, external rotation Technique Used: traction/counter-traction, direct manipulation Post-Reduction Neuro Exam: intact (Sensation to light touch intact including deltoid region) Post-Reduction Vascular Exam: intact (2+ radial pulse palpated) Post Reduction X-Ray Obtained: Yes (improved alignment, successful reduction) Post Reduction X-Ray Results: reduced Splint Applied: Yes (shoulder immobilizer/sling) Patient Tolerated Procedure: well - Procedural Sedation *Procedural Sedation Start Time: 21:46 *Procedural Sedation Stop Time: 21:51 *Risks,benefits, and alternative therapies discussed?: Yes *Patient indicates understanding of risk/benefit discussion?: Yes *Indications: fracture/dislocation reduction *Previous Adverse Reaction to Anesthesia/Sedation?: No * Testing Complete?: No Reason Test Not Complete:: Post-menopausal *ASA Class: II *Mallampati Airway Score: 2 *Time of Last PO Intake: 09:30 Preparation: historic sites supervisor applied, pulse oximeter, capnometry used, supplemental O2 applied, reversal agents at bedside, suction/airway equipment at bedside, IV secured IV Propofol Dose (mgs): 60 Complications: hypoxia (Patient had brief apneic period, O2 sat to 83%, airway repositioned, painful stimuli applied with sternal rub, jaw thrust, patient's RR immediately increased appropriately to 95%) Interventions: oxygen applied, airway repositioned, assist by BVM Patient Tolerated Procedure: well, no complications <Mariangel Garduno - Last Filed: 03/09/24 12:01> Disposition Is patient prescribed a controlled substance at d/c from ED?: Yes When asked, does pt state using other controlled substances?: No If prescribed controlled substance>3 days was MAPS reviewed?: Prescribed <3 Days If opioid is for acute pain is fill amount 7 days or less?: Yes If Rx opioid, was Start Talking consent form obtained?: Yes Time of Disposition: 23:44 <Clau Collins - Last Filed: 03/08/24 23:43> <Mariangel Garduno - Last Filed: 03/09/24 12:01> Clinical Impression: Anterior shoulder dislocation, Fall Disposition: HOME SELF-CARE Condition: Stable Instructions (If sedation given, give patient instructions): Shoulder Dislocation (ED), Moderate Sedation (ED), Fall Prevention (ED) Additional Instructions: Please follow-up with orthopedics. Return to the ER for any new or worsening concerns. Prescriptions: HYDROcodone/APAP 5-325MG [[place] 5] 1 each PO Q6HR PRN #12 tab PRN Reason: Pain Referrals: Cheo Small DO [Primary Care Provider] - 1-2 days Perfecto Workman DO [Doctor of Osteopathic Medicine] - 1-2 days
--- NOTE | 2024-03-08 20:24 | XR ---
EXAMINATION TYPE: XR shoulder complete 3 views LT, XR humerus 2 views LT DATE OF EXAM: 03/08/2024 Comparison: None Clinical History: 68-year-old female with pain after fall injury Findings: Left shoulder: Moderate degenerative change AC joint with joint space narrowing and capsular hypertrophy. Subchondra l sclerosis is seen. There is an anterior subcoracoid glenohumeral joint dislocation. No large Hill-S achs deformity is seen. No acute fracture otherwise seen. Visualized left hemithorax appears clear. Left humerus: No elbow joint effusion. Elbow articulation grossly intact. No acute fracture of the humeral shaft. Impression: 1. Left shoulder: Anterior subcoracoid glenohumeral joint dislocation. Underlying moderate AC joint O A. 2. Left humerus: No acute osseous abnormality seen.
[2024-03-08] MEDS: fentaNYL (PF) 50 MCG/ML 2 ML AMP IVP STA (21:42)
[2024-03-08] MEDS: PROPOFOL 10 MG/ML 20 ML VIAL IV ONE (21:46)
[2024-03-09] MEDS: HYDROcodone/APAP 5-325MG 1 EACH TAB PO STA (00:11)
[2024-03-09 00:26] VITALS: BP 146/60; PULSE 90; RESP 16
[2024-03-09] MEDS: ACET/COD 300 MG/30 MG STARTER PACK 6 TAB BTL PO STA (00:27)
--- NOTE | 2024-03-09 02:48 | XR ---
EXAM: XR Left Shoulder Complete, 2 or More Views CLINICAL HISTORY: ITS.REASON XR Reason: Left arm reduction TECHNIQUE: Two or more views of the left shoulder. COMPARISON: Same day. FINDINGS: Bones/joints: Unremarkable. No acute fracture or subluxation. Soft tissues: Unremarkable. IMPRESSION: Anatomic alignment.
== END 2024-03-09 00:35 | disposition home or self-care (01) ==
LOC: EC 18:31
DX: S43.015A Anterior dislocation of left humerus, initial encounter (principal); Z87.891 Personal history of nicotine dependence; Z86.73 Personal history of transient ischemic attack (TIA), and cerebral infarction without residual deficits; W01.0XXA Fall on same level from slipping, tripping and stumbling without subsequent striking against object, initial encounter; Y93.01 Activity, walking, marching and hiking
CPT/HCPCS: 73030; 73020; 73060; 99284; 96374; 96375 ×2; 23650; 99152; J2405; J3010; J1170; J2704

== ENCOUNTER → 2024-05-25 | Outpatient (CLI) | payer MEDICARE ==
--- NOTE | 2024-05-26 10:26 | MR ---
EXAMINATION TYPE: MR shoulder LT wo con DATE OF EXAM: 05/25/2024 12:05 PM COMPARISON: NONE HISTORY: Dislocation of left shoulder February 2024. TECHNIQUE: Multiplanar multispin echo imaging of the left shoulder was performed. FINDINGS: Rotator cuff : Full thickness retracted tear measuring 1.2 cm involving the supraspinatus tendon with retraction seen. There is no muscular atrophy suggested at this time. Retracted tear infraspinatus t endon with muscular atrophy seen. Subscapularis tendon is intact. Bursa: No bursal effusion or thickening is seen. Musculature: There is no muscular tear or contusion. Acromioclavicular joint : There are mild degenerative changes of the acromioclavicular joint. There is no anterior or lateral acromial downsloping. Osseous structures : There are no fractures or regions of abnormal bone marrow signal intensity. Long biceps tendon : The biceps tendon is normally situated within the bicipital groove. No complete or partial biceps tendon tear is present. Glenohumeral Joint fluid : There is no glenohumeral joint effusion. Cartilage and Bone : No focal hyaline cartilage defects are noted. No Hill-Sachs, reverse Hill-Sachs, or bony [place] lesions are seen. Labrum : There are no SLAP or soft tissue Bankart lesions. No paralabral cysts are seen. OTHER FINDINGS : none IMPRESSION: 1. Full thickness retracted tear measuring 1.2 cm involving the supraspinatus tendon with retraction seen. There is no muscular atrophy suggested at this time. Retracted tear infraspinatus tendon with m uscular atrophy seen. [facility], , 05/26/2024 10:24 AM
== END | disposition home or self-care (01) ==
LOC: RADMRIMAIN 11:00
PROVIDERS: ATTEND Orthopaedic Surgery
DX: S43.085A Other dislocation of left shoulder joint, initial encounter

== ENCOUNTER → 2024-05-25 | Outpatient (CLI) | payer MEDICARE ==
--- NOTE | 2024-05-26 12:26 | MM ---
Reason for Exam: Screening (asymptomatic). Last mammogram was performed 5 year(s) and 0 month(s) ago. Patient History: Menarche at age 12. First Full-Term at age 17. Postmenopausal. Risk Values: Wendy 5 year model risk: 1.2%. NCI Lifetime model risk: 3.9%. Prior Study Comparison: 06/20/2016 Screening Mammogram, [facility]. 10/13/2017 Bilateral Screening Mammogram, [facility]. 06/17/2019 Bilateral Screening Mammogram, [facility]. Tissue Density: There are scattered areas of fibroglandular density. Findings: Analyzed By CAD. There is no suspicious group of microcalcifications or new suspicious mass in either breast. Overall Assessment: Negative, BI-RAD 1 Management: Screening Mammogram of both breasts in 1 year. . Patient should continue monthly self-breast exams. A clinical breast exam by your physician is recommended on an annual basis. This exam should not preclude additional follow-up of suspicious palpable abnormalities. Note on Wendy scores and lifetime risk: 1. A Wendy score greater than 3% is considered moderate risk. If this is the case, consider specialist referral to assess eligibility for a risk reducing agent. 2. If overall lifetime risk for the development of breast cancer is 20% or higher, the patient may qualify for future screening with alternating mammogram and breast MRI. [facility], , 05/26/2024 12:23 PM. Electronically signed and approved by: Sarmad Velez M.D. Radiologis
== END | disposition home or self-care (01) ==
LOC: RADMAMWWP 12:10
PROVIDERS: ATTEND Internal Medicine
CPT/HCPCS: 77063; 77067

== ENCOUNTER → 2024-06-14 | Outpatient (CLI) | payer MEDICARE | END | disposition home or self-care (01) | LOC: LABPAT 14:19 | PROVIDERS: ATTEND Orthopaedic Surgery | DX: Z01.818 Encounter for other preprocedural examination (principal) | CPT/HCPCS: 87070 ==

== ENCOUNTER → 2024-06-23 | Outpatient (CLI) | payer MEDICARE ==
[~2024-06-23] MED LIST changes: -ASPIRIN 325 MG TAB PO STA; -CLOPIDOGREL 75 MG TAB PO STA; +DOBUTamine DRIP for NUC MED 500 MG in DEXTROSE/WATER 1 250ML.BAG IV PRN; -NITROGLYCERIN SL TABS 0.4 MG TAB SUBLINGUAL PRN; -SODIUM CHLORIDE 0.9% 1,000 ML in EMPTY BAG 1 BAG IV ONE
--- NOTE | 2024-06-23 11:48 | CA ---
Dobutamine Stress Echocardiogram Report Yesenia Barnes Age: 68 Gender: F : 1955 Exam Date: 06/23/2024 10:02 Exam Location: [facility] Ordering Physician: Justin Epperson MD ([id number]) Referring Physician: Melissa Jennings Wood Caulker: Peggy Baptiste RDCS Technologist: Ht (in): 61 Wt (lb): 128 Procedure CPT: Indication: echo ICD-9 Codes: Rhythm: Patient History: HTN, DIABETIC, PRIOR CVA, HYPERCHOLESTEROLEMIA, PRIOR SMOKER, PRIOR VT Cardiac Medications: Medications in past 24 hours: Contrast: Total Dose (mL): Stress Results Protocol: Dobutamine Peak Dose (???g/kg/min): 20 Duration (min:sec): Atropine:(mg) Target HR: 128 Double Product: [id number] Resting HR: 85 Resting BP: 153 / 64 Peak HR: 151 Peak BP: 213 / 69 Max Predicted HR: 151 100 % Max Predicted HR Stress Summary: BP Response: 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 Patient developed ventricular tachycardia with dobutamine infusion EKG changes were inconclusive Arrhythmia: Echo Analysis Base Echo Analysis: Normal left ventricular size wall motion and systolic function There is moderate pericardial effusion noted Low Echo Anaylsis: Normal hyperdynamic response Peak Echo Analysis: Technically suboptimal as patient developed ventricular tachycardia at peak exercise no wall motion abnormalities are noted Recovery Echo: Normal MEASUREMENTS (Male/Female) Normal Values CONCLUSIONS Inconclusive dobutamine stress echo secondary to ventricular tachycardia with dobutamine infusion Moderate pericardial effusion Dr. Yvon Sutherland MD (Electronically Signed) Final Date: 23 June 2024 11:47
== END | disposition home or self-care (01) ==
LOC: RADNMMAIN 09:35
PROVIDERS: ATTEND Internal Medicine Clinical Cardiac Electrophysiology
CPT/HCPCS: 93351

== ENCOUNTER 2024-07-02 07:58 | Day surgery (SDC) | payer MEDICARE ==
[2024-06-28 14:04] VITALS: BMI 34.9
--- NOTE | 2024-07-01 08:21 | P.HPOR ---
History of Present Illness H&P Date: 07/01/24 Chief Complaint: Left shoulder pain and weakness Patient is a 68-year-old retired female who presents with left shoulder pain and weakness for the past 4 months. She notes in February she dislocated her shoulder. She is unable to really raise her arm ever since. She is having pain with any attempted activity. She did try physical therapy without much improvement. Review of Systems Per HPI Past Medical History Past Medical History: Atrial Fibrillation, CVA/TIA, Diabetes Mellitus, GERD/Reflux, Hyperlipidemia, Hypertension, Seizure Disorder Additional Past Medical History / Comment(s): TIA years ago-no residual effects, couple seizures years ago-felt to be due to very elevated blood sugar @that time, POSSIBLE [place] YEARS AGO, unsure when, hx. of a-fib years ago after a procedure-not currently that she knows of, occasional dysphagia w/meats, has to be dilated in past, decreased kidney function, DISLOCATED LT SHOULDER 02/2024 Last Myocardial Infarction Date:: unsure History of Any Multi-Drug Resistant Organisms: None Reported Past Surgical History: Orthopedic Surgery, Tubal Ligation Additional Past Surgical History / Comment(s): EGD X 3, ORIF right ankle, COLONOSCOPY, Past Anesthesia/Blood Transfusion Reactions: No Reported Reaction, Previous Prob lems w/ Anesthesia, Motion Sickness Additional Past Anesthesia/Blood Transfusion Reaction / Comment(s): after endo procedure years ago had brief issue w/atrial fib Date of Last Stent Placement:: 2018 in neck Smoking Status: Former smoker - Past Family History Mother Family Medical History: Cancer Additional Family Medical History / Comment(s): SKIN CANCER Father Family Medical History: Cancer Medications and Allergies Home Medications Medication Instructions Recorded Confirmed Type Aspirin 81 mg PO DAILY 10/04/14 06/28/24 History Omeprazole [PriLOSEC] 20 mg PO AC-SUPPER 10/28/17 06/28/24 History Atorvastatin [Lipitor] 20 mg PO HS 08/04/19 06/28/24 History Clopidogrel [Plavix] 75 mg PO DAILY 08/04/19 06/28/24 History Cholecalciferol [Vitamin D3 (125 125 mcg PO DAILY 05/08/23 06/28/24 History Mcg = 5000 Iu)] Ferrous Sulfate [Iron (65 MG 1 tab PO DAILY 05/08/23 06/28/24 History Elemental)] Sertraline [Zoloft] 100 mg PO DAILY 05/08/23 06/28/24 History Valsartan [Diovan] 320 mg PO DAILY 05/08/23 06/28/24 History Zinc Gluconate [Zinc] 50 mg PO DAILY 05/08/23 06/28/24 History amLODIPine [Norvasc] 5 mg PO DAILY 05/08/23 06/28/24 History carvediloL 12.5 mg PO BID 05/08/23 06/28/24 History Apixaban [Eliquis] 2.5 mg PO BID 06/28/24 06/28/24 History Insulin Glargine/Lixisenatide 30 units SQ DAILY 06/28/24 06/28/24 History [Soliqua 100 Unit-33 Mcg/ml Pen] Pioglitazone [Actos] 15 mg PO DAILY 06/28/24 06/28/24 History Allergies Allergy/AdvReac Type Severity Reaction Status Date / Time No Known Allergies Allergy Verified 06/28/24 13:33 Physical Examination - Shoulder left Appearance: effusion Tenderness with palpation: anterior, bicipital groove Pain: with abduction, with forward flexion ROM: forward flexion: 20 degrees ROM: internal rotation: mid lumbar ROM: external rotation: 0 degrees Crepitus with motion: Yes Strength: abduction: 3/5 Strength: external rotation: 4/5 Tests: internal impingement tests: positive, external impingment tests: positive Results Patient is a well-developed well-nourished female approximately 5, 210 pounds of endomorphic habitus. HEENT exam is nonfocal, neck is supple. She's tender about the anterior left glenohumeral joint. Moderate crepitus is noted. Passively I'm able to belevate her 120. She has marked weakness in abduction and external rotation. Feldman, Neer sign, and speed tests are positive. Her distal neurovascular Audie appears intact in the left upper extremity. - Diagnostic results Shoulder x-ray: image reviewed (X-rays of the left shoulder obtained the office show diminished humeral head to acromial distance along with a Hill-Sachs lesion.) Shoulder MRI: image reviewed (MRI of the left shoulder shows evidence of a large retracted rotator cuff tear with significant muscular atrophy.) Assessment and Plan Assessment: Left large retracted rotator cuff tear Left glenohumeral dislocation Plan: I talked to the patient at length regarding her condition along with treatment options. At this point she is quite symptomatic having pain and weakness after this previous injury despite conservative measures. After a thorough discussion she opts to proceed with surgery. We'll plan to proceed with left reverse total shoulder arthroplasty. Risks and benefits were discussed at length layman's terms. We will reinstitute her anticoagulation postoperatively.
[~2024-07-02 07:58] MED LIST changes: -DOBUTamine DRIP for NUC MED 500 MG in DEXTROSE/WATER 1 250ML.BAG IV PRN; +TRANEXAMIC 1,000 MG/100ML-NACL 1,000 MG in SALINE 1 100ML.BAG IVPB PRN
[2024-07-02] MEDS: IV FLUID CONTINUATION 1,000 ML IV ONE (08:36)
[2024-07-02 09:10] LABS: Glucose,Whole Blood 111 mg/dL (70-110)
[2024-07-02] MEDS: ACETAMINOPHEN TAB 500 MG TAB PO PRN (09:10)
[2024-07-02] MEDS: MELOXICAM 7.5 MG TAB PO PRN (09:10)
[2024-07-02] MEDS: ONDANSETRON 4 MG/2 ML VIAL IVP ONE (09:11)
[2024-07-02] MEDS: DEXAMETHASONE SOD PHOSPHATE 4 MG/ML 1 ML VIAL IV ONE (09:11)
[2024-07-02] MEDS: LACTATED RINGERS 1,000 ML IV SCH (09:11)
--- NOTE | 2024-07-02 09:39 | P.ANPRN ---
Procedure Note - Anesthesia - Nerve Block Performed Left Interscalene Single Time Out Performed: Yes ([id number]) Date of Procedure: 07/02/24 Procedure Start Time: Procedure Stop Time: Location of Patient: PreOp Indication: Acute Post-Operative Pain, Requested by Surgeon Sedation Type: Sedate with meaningful contact maintained Preparation: Sterile Prep, Sterile Dressing Position: Sitting Catheter: None Needle Types: Pajunk Needle Gauge: Other (see comment) (22G) Ultrasound used to visualize needle placement: Yes Ultrasound used to observe medication spread: Yes Injectate: 0.5% Ropivacaine (see comment for volume) (21 ml containing 4 mg of dexamethasone mixed with 20 ml of 0.5% Ropivacaine) Blood Aspirated: No Pain Paresthesia on Injection Noted: No Resistance on Injection: Normal Image Stored and Saved: Yes Events: Uneventful and Well Tolerated
[2024-07-02] MEDS: MIDAZOLAM 2 MG/2 ML VIAL IV PRN (09:40)
[2024-07-02] MEDS ORDERED: ePHEDrine 50 MG/ML 1 ML VIAL ONE (10:26)
[2024-07-02] MEDS ORDERED: ROCURONIUM 10 MG/ML (5 ML VIAL) IV ONE (10:26)
[2024-07-02] MEDS ORDERED: DEXAMETHASONE SOD PHOSPHATE 4 MG/ML 1 ML VIAL ONE (10:26)
[2024-07-02] MEDS ORDERED: fentaNYL (PF) 50 MCG/ML 2 ML AMP ONE (10:26)
[2024-07-02] MEDS ORDERED: GLYCOPYRROLATE 0.2 MG/ML 2 ML VIAL ONE (10:26)
[2024-07-02] MEDS ORDERED: MIDAZOLAM 2 MG/2 ML VIAL ONE (10:26)
[2024-07-02] MEDS ORDERED: PROPOFOL 10 MG/ML 20 ML VIAL IV ONE (10:26)
[2024-07-02] MEDS ORDERED: LIDOCAINE 1% INJ 10MG/ML (20 ML MDV) ONE (10:26)
[2024-07-02] MEDS ORDERED: TRANEXAMIC 1,000 MG/100ML-NACL PREMIX BAG ONE (10:26)
[2024-07-02] MEDS ORDERED: NEOSTIGMINE 1 MG/ML 10 ML VIAL ONE (10:26)
[2024-07-02] MEDS ORDERED: ROPIVACAINE 5 MG/ML 30 ML VIAL ONE (10:26)
[2024-07-02] MEDS: ceFAZolin 1,000 MG in SODIUM CHLORIDE 0.9% 1,000 ML IRRIGATION ONE (11:05)
[2024-07-02] MEDS: LACTATED RINGERS 1,000 ML IV ONE ×2 (11:20→12:26)
[2024-07-02] MEDS ORDERED: HYDROcodone/APAP 5-325MG 1 EACH TAB PO PRN (12:25)
[2024-07-02] MEDS ORDERED: SENNOSIDES-DOCUSATE SODIUM 1 EACH TAB PO PRN (12:25)
[2024-07-02] MEDS ORDERED: ONDANSETRON 4 MG/2 ML VIAL IVP PRN (12:25)
[2024-07-02] MEDS ORDERED: HYDROmorphone 0.5 MG/0.5 ML SYRINGE IVP PRN ×2 (12:25)
[2024-07-02] MEDS ORDERED: hydrOXYzine pamoate 25 MG CAP PO PRN (12:25)
--- NOTE | 2024-07-02 12:28 | P.OP ---
Date of Procedure: 07/02/24 Preoperative Diagnosis: Left rotator cuff arthropathy Postoperative Diagnosis: Same Procedure(s) Performed: Left reverse total shoulder arthroplasty Implants: DePuy delta xtend size 10 press-fit humeral stem, size 1 epiphysis, 38+6 articular surface, 38 mm glenosphere with standard baseplate. [facility] Surgeon: Bernard Schulte Chain Splitter #1: Isaiah Velazquez Estimated Blood Loss (ml): 150 Pathology: none sent Condition: stable Disposition: PACU Indications for Procedure: The patient is a 68-year-old female who presents with left shoulder pain and weakness after previous fall. Upon evaluation she was noted of a large retracted rotator cuff tear. She tried conservative measures without significant improvement. A discussion of the risks and benefits of operative intervention versus continued conservative measures was made with the patient. She opted to proceed. Specific risks of surgery to include infection, neurovascular injury, fracture, possible instability/dislocation, possible component loosening/failure, and possible need for subsequent procedures was discussed. Informed consent was obtained. Operative Findings: As below Description of Procedure: The patient was brought to the operating room, and after induction of general anesthesia was placed in a beachchair position. The bony prominences were appropriately padded. I examined the left shoulder. There was moderate lack of passive forward elevation and external rotation. The left upper extremity was prepped and draped in normal fashion. The bony outlines the coracoid process, distal clavicle, and acromion were outlined with a skin marker. A pulse centimeter deltopectoral incision was made lateral to the coracoid process. Skin was incised sharply. Subcutaneous tissues were divided bluntly. Electrocautery was used for hemostasis. The cephalic vein was identified and gently retracted laterally with the deltoid. The deltopectoral was bluntly developed. Subdeltoid adhesions were then released. The self-retaining retractor was placed. The conjoined tendon was retracted medially and the deltoid laterally. The biceps was identified. Its sheath was opened. A biceps tenotomy was performed along the remaining tendon did retract distally. Pseudocapsule was excised. The head was then exposed. The shoulder was dislocated. A starting hole was made in line with the humeral shaft. The canal was reamed by hand up to size 10. There was good distal chatter. The cutting guide was then placed. I planned on 20 of retroversion. The humeral head cut was then made. The bone was removed in one fragment. Residual inferomedial osteophytes were removed flush with the [place] cortical bone. Attention was then paid towards preparing the glenoid. An anterior and posterior retractors placed. The labrum was released from the 6-12 o'clock position. Remaining biceps was removed as well. A guidepin was placed in the inferior aspect of the glenoid with the guide slightly tilting inferior. The reamer was used down to a bleeding bony surface. The central peg hole was drilled. The standard baseplate was inserted with good purchase. Inferior, superior, and posterior locking screws the appropriate length were placed. Good purchase was obtained. The 38 mm glenosphere was inserted over a guidewire. This was fully seated. Care was taken to avoid any soft tissue interposition. Attention was then paid towards preparing the proximal humerus. The appropriate broach was placed and 20 of retroversion and was fully seated. An eccentric size 1 epiphyseal reamer was utilized. A size 10 stem with a size 1 epiphysis was placed and 20 of retroversion. Trial reduction was obtained with a 38 mm + 6 articular surface. The shoulder was taken through range of motion. He was felt to be stable in flexion and extension with internal and external rotation. I felt there was adequate rastafarian of soft tissue tension judging off the conjoined tendon. The shoulder was gently dislocated. The trial components were then removed. The final size 10 press-fit stem along with a size 1 epiphysis was fully seated. There was good rotational stability. The 38 mm + 6 articular surface was impacted. The shoulder again was gently reduced and taken through range of motion. Again it was felt to be stable in all planes. Pulsatile lavage was utilized. The subscapularis was a attached to the lesser tuberosity with #2 Ethibond suture. The deltopectoral interval was closed with interrupted 2-0 Vicryl sutures. The skin was reapproximated with 3-0 subcuticular Prolene suture. Steri-Strips were applied. A sterile dressing was applied. A sling was placed. The patient was awoken from general anesthesia and transferred to recovery room in good condition. Blood loss was estimated at 150 mL. No complications were incurred. Sponge and needle counts were correct at the end the case. Isaiah BENITEZ assisted during the major components of the case to include exposure, glenoid and humeral preparation, implantation, and closure.
[2024-07-02] MEDS: HYDROmorphone 0.5 MG/0.5 ML SYRINGE IVP PRN (13:48)
[2024-07-02] MEDS: METOPROLOL TARTRATE 5 MG/5 ML VIAL IVP STA (14:06)
--- NOTE | 2024-07-02 14:17 | XR ---
EXAMINATION TYPE: XR shoulder limited LT DATE OF EXAM: 07/02/2024 1:09 PM COMPARISON: None. CLINICAL INDICATION: Female, 68 years old with history of s/p reverse left total shoulder arthroplast y, TECHNIQUE: XR shoulder limited LT view(s) obtained. FINDINGS: There is placement of a left shoulder prosthesis. Small amount cortical bone may be adjacent to the p roximal metaphysis of the humerus. No large fractures evident. Postsurgical soft tissue changes prese nt. IMPRESSION: 1. Status post left shoulder prosthesis placement. [facility], , 07/02/2024 2:14 PM
[2024-07-02] MEDS ORDERED: DEXTROSE 50% SYRINGE 50 ML IVP PRN ×2 (16:16)
[2024-07-02 16:47] LABS: Glucose,Whole Blood 157 mg/dL (70-110)
[2024-07-02] MEDS: PANTOPRAZOLE 40 MG TABLET PO SCH (17:17)
[2024-07-02] MEDS: carvediloL 12.5 MG TAB PO SCH (17:17)
[2024-07-02] MEDS: INSULIN ASPART (NovoLOG) 100 UNIT/ML VIAL SQ SCH (17:18)
--- NOTE | 2024-07-02 17:24 | P.PN ---
Subjective Progress Note Date: 07/02/24 Please ignore this note. Objective - Vital Signs Vital signs: Vital Signs Temp 97.7 F 07/02/24 09:15 Pulse 79 07/02/24 15:00 Resp 14 07/02/24 15:00 BP 152/58 07/02/24 15:00 Pulse Ox 91 L 07/02/24 15:00 FiO2 Intake & Output 07/01/24 07/02/24 07/02/24 18:59 06:59 18:59 Intake Total 3750 Output Total 150 Balance 3600 Weight 94.4 kg Intake: IV 3750 Output: Estimated Blood Loss 150 - Labs CBC & Chem 7: 07/02/24 16:59 Labs: Abnormal Lab Results - Last 24 Hours (Table) 07/02/24 07/02/24 Range/Units 09:05 16:45 POC Glucose (mg/dL) 111 H 157 H (70-110) mg/dL
[2024-07-02 17:33] LABS: Basophils % (A) 0 %; Eosinophils % (A) 0 %; HCT 38.7 % (34.0-46.0); HGB 12.1 gm/dL (11.4-16.0); Lymphocytes # (A) 1.6 k/uL (1.0-4.8); Lymphocytes % (A) 12 %; MCH 28.8 pg (25.0-35.0); MCHC 31.3 g/dL (31.0-37.0); Mean Platelet Volume 7.4; Monocytes # (A) 0.2 k/uL (0-1.0); Monocytes % (A) 2 %; Neutrophils # (A) 11.2 k/uL (1.3-7.7); Neutrophils % (A) 86 %; Platelet Count 220 k/uL (150-450); RBC 4.21 m/uL (3.80-5.40); RDW 13.9 % (11.5-15.5)
--- NOTE | 2024-07-02 17:37 | P.CONS ---
History of Present Illness - Reason for Consult Consult date: 07/02/24 - History of Present Illness Patient is a 68-year-old female with a PMH of A-fib on Eliquis, CVA, left carotid artery status post stent on aspirin and Plavix, type 2 diabetes, GERD, hyperlipidemia, hypertension who has been endorsing left shoulder pain for the last 3 to 4 months had undergone left reverse total shoulder arthroplasty on 07/02/2024. No intraoperative complication have been noted. Patient is not in any acute distress and is endorsing very minimal pain at this time. Patient otherwise denies any shortness of breath, chest pain, abdominal pain, diarrhea, constipation, numbness or weakness in upper or lower extremities. Internal medicine service has been consulted for medical management of this patient. Physical examination: Vital signs reviewed General: non toxic, no distress, appears at stated age, normal weight Derm: no unusual rashes/lesions, warm, surgical site clean and intact Head: atraumatic, normocephalic, symmetric Eyes: EOMI, no lid lag, anicteric sclera, pupils equal round reactive to light ENT: Nose and ears atraumatic Neck: No cervical lymphadenopathy, trachea midline, supple Mouth: no lip lesion, mucus membranes moist Cardiovascular: S1S2 irregular, no murmur, positive dorsalis pedis pulse bilateral, no edema Lungs: CTA bilateral, no rhonchi, no rales, no accessory muscle use Abdominal: soft, nontender to palpation, no guarding Ext: Left shoulder is stabilized with brace, rest of the extremities have more strength 5 out of 5 with sensations intact Neuro: CN II-XI grossly intact, no gross focal neuro deficits Psych: Alert, oriented, appropriate affect Assessment/Plan: Patient is a 68-year-old female with a PMH of A-fib on Eliquis, CVA, left carotid artery status post stent on aspirin and Plavix, type 2 diabetes, GERD, hyperlipidemia, hypertension who has been endorsing left shoulder pain for the last 3 to 4 months had undergone left reverse total shoulder arthroplasty on 07/02/2024. Postop day 0 #Left shoulder pain status post left reverse total shoulder arthroplasty No intraoperative complication Management including pain control per orthopedic #Type 2 diabetes mellitus Glucose 157 Accu-Cheks and sliding scale insulin Levemir 30 units subcu daily Continue monitor for hypoglycemia Outpatient follow-up for diabetes management Chronic conditions: Hypertension: Resume valsartan 320 mg p.o. daily and amlodipine 5 mg p.o. daily Chronic A-fib: Resume Eliquis 2.5 mg p.o. twice daily, carvedilol 12.5 mg p.o. twice daily Left internal carotid artery stenosis status post stent: Hold aspirin 81 mg p.o. daily and continue Plavix 75 mg p.o. daily - Patient ideally should not be on triple anticoagulation therapy. Patient is advised to follow-up with PCP and cardiology GERD: Resume Protonix 40 mg p.o. daily Anxiety/depression: Resume Zoloft 100 mg p.o. daily Monitor with CBC and BMP in the morning DVT prophylaxis: Eliquis 2.5 mg p.o. twice daily GI prophylaxis: Protonix 40 mg p.o. daily I have seen and evaluated the patient today. Discussed with the resident and agree with the residents finding and plan as documented in the resident's note. Changes highlighted in blue font. Past Medical History Past Medical History: Atrial Fibrillation, CVA/TIA, Diabetes Mellitus, GERD/Reflux, Hyperlipidemia, Hypertension, Seizure Disorder Additional Past Medical History / Comment(s): TIA years ago-no residual effects, couple seizures years ago-felt to be due to very elevated blood sugar @that time, POSSIBLE [place] YEARS AGO, unsure when, hx. of a-fib years ago after a procedure-not currently that she knows of, occasional dysphagia w/meats, has to be dilated in past, decreased kidney function, DISLOCATED LT SHOULDER 02/2024 Last Myocardial Infarction Date:: unsure History of Any Multi-Drug Resistant Organisms: None Reported Past Surgical History: Orthopedic Surgery, Tubal Ligation Additional Past Surgical History / Comment(s): EGD X 3, ORIF right ankle, COLONOSCOPY, Past Anesthesia/Blood Transfusion Reactions: No Reported Reaction, Previous Problems w/ Anesthesia, Motion Sickness Additional Past Anesthesia/Blood Transfusion Reaction / Comm: after endo proc edure years ago had brief issue w/atrial fib Date of Last Stent Placement:: 2019 in neck Past Psychological History: Depression Smoking Status: Former smoker Past Alcohol Use History: None Reported Additional Past Alcohol Use History / Comment(s): STARTED SMOKING AT AGE 19 ,QUIT SMOKING 2003, APPROX SMOKED 3/4 PPD Past Drug Use History: None Reported Additional Drug Use History / Comment(s): HEMP OIL - Past Family History Mother Family Medical History: Cancer Additional Family Medical History / Comment(s): SKIN CANCER Father Family Medical History: Cancer Medications and Allergies Home Medications Medication Instructions Recorded Confirmed Type RX: Aspirin 81 mg PO DAILY 10/04/14 07/02/24 History RX: Omeprazole [PriLOSEC] 20 mg PO AC-SUPPER 10/28/17 07/02/24 History RX: Atorvastatin [Lipitor] 20 mg PO HS 08/04/19 07/02/24 History RX: Clopidogrel [Plavix] 75 mg PO DAILY 08/04/19 07/02/24 History Cholecalciferol [Vitamin D3 (125 125 mcg PO DAILY 05/08/23 07/02/24 History Mcg = 5000 Iu)] Ferrous Sulfate [Iron (65 MG 1 tab PO DAILY 05/08/23 07/02/24 History Elemental)] RX: carvediloL 12.5 mg PO BID 05/08/23 07/02/24 History Sertraline [Zoloft] 100 mg PO DAILY 05/08/23 07/02/24 History Valsartan [Diovan] 320 mg PO DAILY 05/08/23 07/02/24 History Zinc Gluconate [Zinc] 50 mg PO DAILY 05/08/23 07/02/24 History amLODIPine [Norvasc] 5 mg PO DAILY 05/08/23 07/02/24 History Apixaban [Eliquis] 2.5 mg PO BID 06/28/24 07/02/24 History Insulin Glargine/Lixisenatide 30 units SQ DAILY 06/28/24 07/02/24 History [Soliqua 100 Unit-33 Mcg/ml Pen] Pioglitazone [Actos] 15 mg PO DAILY 06/28/24 07/02/24 History Allergies Allergy/AdvReac Type Severity Reaction Status Date / Time No Known Allergies Allergy Verified 07/02/24 08:24 Physical Exam Vitals: Vital Signs Temp Pulse Resp BP Pulse Ox 07/02/24 15:00 79 14 152/58 91 L 07/02/24 14:30 80 14 171/72 97 07/02/24 14:15 77 14 173/74 97 07/02/24 14:00 82 14 191/69 97 07/02/24 13:45 81 18 185/78 91 L 07/02/24 13:30 84 18 188/68 92 L 07/02/24 13:15 81 18 175/90 98 07/02/24 13:00 84 17 178/76 97 07/02/24 12:45 86 18 148/96 97 07/02/24 12:30 85 18 171/59 96 07/02/24 12:27 90 18 168/70 92 L 07/02/24 09:40 80 16 124/57 97 07/02/24 09:15 97.7 F 82 16 160/68 98 Intake and Output 07/02/24 07/02/24 07/02/24 06:59 14:59 22:59 Intake Total 3750 Output Total 150 Balance 3600 Intake: IV 3750 Output: Estimated Blood Loss 150 Other: Weight 94.4 kg 94.4 kg Results CBC & Chem 7: 07/02/24 16:59 Labs: Abnormal Lab Results - Last 24 Hours (Table) 07/02/24 07/02/24 07/02/24 Range/Units 09:05 16:45 16:59 WBC 13.0 H (3.8-10.6) k/uL Neutrophils # 11.2 H (1.3-7.7) k/uL POC Glucose (mg/dL) 111 H 157 H (70-110) mg/dL
[2024-07-02 20:22] LABS: Glucose,Whole Blood 287 mg/dL (70-110)
[2024-07-02 20:50] VITALS: RESP 17
[2024-07-02] MEDS: HYDROcodone/APAP 5-325MG 1 EACH TAB PO PRN (21:11)
[2024-07-02] MEDS: ATORVASTATIN 20 MG TAB PO SCH (21:11)
[2024-07-02] MEDS: APIXABAN 2.5 MG TABLET PO SCH (21:11)
[2024-07-03 06:47] LABS: Glucose,Whole Blood 120 mg/dL (70-110)
[2024-07-03] MEDS: INSULIN DETEMIR (LEVEMIR) 100 UNIT/ML SYR SQ SCH (06:56)
[2024-07-03] MEDS: FERROUS SULFATE 325 MG TAB PO SCH (08:29)
[2024-07-03] MEDS: CLOPIDOGREL 75 MG TAB PO SCH (08:29)
[2024-07-03] MEDS: amLODIPine 5 MG TAB PO SCH (08:30)
[2024-07-03] MEDS: SERTRALINE 100 MG TAB PO SCH (08:30)
[2024-07-03] MEDS: VALSARTAN 160 MG TAB PO SCH (08:30)
[2024-07-03 08:44] VITALS: BP 109/63; PULSE 80; TEMP 98.2
--- NOTE | 2024-07-03 09:12 | P.DS ---
Providers Date of admission: 07/02/2024 Expected date of discharge: 07/03/24 Attending physician: Bernard Schulte Consults: 07/02/24 12:30 Consult Physician Routine Consulting Provider: Anival Tariq Consult Reason/Comments: Medical Management s/p reverse left total shoulder arthroplasty Do you want consulting provider notified?: Yes [facility] Course: Date of admission: 07/02/2024 Date of discharge: 07/03/2024 Admission diagnosis: Left rotator cuff arthropathy Discharge diagnosis: Same Attending physician: Dr. Schulte Surgical procedures: Reverse left total shoulder arthroplasty Brief history: Patient is a 68-year-old female with a history of left rotator cuff arthropathy. At this point patient has failed conservative treatment measures and has opted to proceed with a elective reverse left total shoulder arthroplasty. Hospital course: Details of patient's surgery can be found in operative report. Patient tolerated the procedure well and was subsequently transported to orthopedic floor. Patient's orthopeidc and medical care was provided daily. Patient had daily laboratory tests performed for evaluation of overall blood counts. Patient had daily physical therapy to include strengthening range of motion as well as education with walker ambulation. Patient was treated with Plavix and Eliquis for their postoperative DVT prophylaxis during their inpatient stay. Patient was noted to have a relatively uneventful postoperative course. Patient reported satisfactory pain control with oral pain medications by postoperative day 1. Patient showed satisfactory progress with physical therapy. Patient moved steadily through the program and had no difficulty meeting the goals by postoperative day 1. Given patient's otherwise satisfactory course and having met physical therapy goals, plan is to discharge patient home on postoperative day 1. Discharge condition/disposition: Patient will be discharged home in stable condition. Discharge medications: Instructions are given on resumption of patient's normal daily medications per primary care recommendation, in addition patient will be prescribed [place]. Orthopedic Discharge Instructions: 1. Wound care and infection precautions, keep incision dry and covered while showering, no lotions, creams, moisturizers. No soaking, pools, hot tubs. Do not scrub over incision. 2. Nonweightbearing left upper extremity until follow-up. 3. Ice when necessary. Do not exceed 20 minutes per hour with ice pack. 4. Utilize sling to left upper extremity until seen at first follow up appointment. 5. Pain meds and anticoagulants per prescription. 6. Pain medication has potential to cause constipation. Increase oral fluid and fiber intake. Contact primary care provider if you have not had a bowel movement within 48 hours after discharge. 7. No anti-inflammatory medication until discussed at first post operative visit, this including Motrin, Aleve, Mobic, Diclofenac. 8. Follow up in office at 2 weeks postop with Sriram Hancock PA-C / Isaiah Velazquez PA-C 9. Follow up with your primary care doctor 7-10 days after discharge. 10. Contact [facility] with any questions, . Keep incision clean, dry, intact. While showering, cover steri-strips/dressing with Saran wrap. Keep steri-strips on until follow-up appointment in office in 2 weeks. Assessment: Left rotator cuff arthropathy Procedures: Reverse left total shoulder arthroplasty Patient Condition at Discharge: Good Plan - Discharge Summary Discharge Rx Participant: Yes New Discharge Prescriptions: New HYDROcodone/APAP 5-325MG [[place] 5-325] 1 tab PO Q6HR PRN #28 tab PRN Reason: Pain Continue Clopidogrel [Plavix] 75 mg PO DAILY Apixaban [Eliquis] 2.5 mg PO BID No Action Aspirin 81 mg PO DAILY Omeprazole [PriLOSEC] 20 mg PO AC-SUPPER Atorvastatin [Lipitor] 20 mg PO HS carvediloL 12.5 mg PO BID Sertraline [Zoloft] 100 mg PO DAILY amLODIPine [Norvasc] 5 mg PO DAILY Ferrous Sulfate [Iron (65 MG Elemental)] 1 tab PO DAILY Cholecalciferol [Vitamin D3 (125 Mcg = 5000 Iu)] 125 mcg PO DAILY Insulin Glargine/Lixisenatide [[place] 100 Unit-33 Mcg/ml Pen] 30 units SQ DAILY Valsartan [Diovan] 320 mg PO DAILY Zinc Gluconate [Zinc] 50 mg PO DAILY Pioglitazone [Actos] 15 mg PO DAILY Discharge Medication List Aspirin 81 mg PO DAILY 10/04/14 [History] Omeprazole [PriLOSEC] 20 mg PO AC-SUPPER 10/28/17 [History] Atorvastatin [Lipitor] 20 mg PO HS 08/04/19 [History] Clopidogrel [Plavix] 75 mg PO DAILY 08/04/19 [History] Cholecalciferol [Vitamin D3 (125 Mcg = 5000 Iu)] 125 mcg PO DAILY 05/08/23 [History] Ferrous Sulfate [Iron (65 MG Elemental)] 1 tab PO DAILY 05/08/23 [History] Sertraline [Zoloft] 100 mg PO DAILY 05/08/23 [History] Valsartan [Diovan] 320 mg PO DAILY 05/08/23 [History] Zinc Gluconate [Zinc] 50 mg PO DAILY 05/08/23 [History] amLODIPine [Norvasc] 5 mg PO DAILY 05/08/23 [History] carvediloL 12.5 mg PO BID 05/08/23 [History] Apixaban [Eliquis] 2.5 mg PO BID 06/28/24 [History] Insulin Glargine/Lixisenatide [[place] 100 Unit-33 Mcg/ml Pen] 30 units SQ DAILY 06/28/24 [History] Pioglitazone [Actos] 15 mg PO DAILY 06/28/24 [History] HYDROcodone/APAP 5-325MG [[place] 5-325] 1 tab PO Q6HR PRN #28 tab 07/03/24 [Rx] Follow up Appointment(s)/Referral(s): Isaiah Velazquez PAC [PHYSICIAN [employer]] - 2 Weeks Activity/Diet/Wound Care/Special Instructions: Orthopedic Discharge Instructions: 1. Wound care and infection precautions, keep incision dry and covered while showering, no lotions, creams, moisturizers. No soaking, pools, hot tubs. Do not scrub over incision. 2. Nonweightbearing left upper extremity until follow-up. 3. Ice when necessary. Do not exceed 20 minutes per hour with ice pack. 4. Utilize sling to left upper extremity until seen at first follow up appointment. 5. Pain meds and anticoagulants per prescription. 6. Pain medication has potential to cause constipation. Increase oral fluid and fiber intake. Contact primary care provider if you have not had a bowel movement within 48 hours after discharge. 7. No anti-inflammatory medication until discussed at first post operative visit, this including Motrin, Aleve, Mobic, Diclofenac. 8. Follow up in office at 2 weeks postop with Sriram Hancock PA-C / Isaiah Velazquez PA-C 9. Follow up with your primary care doctor 7-10 days after discharge. 10. Contact [facility] with any questions, . Keep incision clean, dry, intact. While showering, cover steri-strips/dressing with Saran wrap. Keep steri-strips on until follow-up appointment in office in 2 weeks. Discharge Disposition: HOME SELF-CARE
--- NOTE | 2024-07-03 09:15 | P.PN ---
Subjective Progress Note Date: 07/03/24 Principal diagnosis: Left rotator cuff arthropathy Patient was seen at bedside this morning lying in the summer composition with bulky dressing present over left shoulder and sling present to left upper extremity. Patient says pain is controlled with oral medication. She says she has been up walking several times since surgery yesterday under her own power. She says she has used a bathroom several times and has urinated since surgery without issue. Patient denies having bowel yet, however, patient says she has passed gas. Patient says she is looking forward to going home later today. Patient denies any other issues at this time. Objective - Vital Signs Vital signs: Vital Signs Temp 98.2 F 07/03/24 07:20 Pulse 80 07/03/24 07:20 Resp 17 07/03/24 07:20 BP 109/63 07/03/24 07:20 Pulse Ox 97 07/03/24 07:20 FiO2 Intake & Output 07/02/24 07/03/24 07/03/24 18:59 06:59 18:59 Intake Total 3750 Output Total 150 Balance 3600 Weight 94.4 kg Intake: IV 3750 Output: Estimated Blood Loss 150 Other: Voiding Method Toilet # Voids 1 2 - Exam Left shoulder: Incision is clean, dry, and intact. The bulky dressing is in good condition. There is minimal soft tissue swelling and ecchymosis surrounding the medial and lateral aspects of the incision. Calf is soft, no tenderness with palpation. Plantar flexion, dorsiflexion, EHL, FHL are intact. Sensory exam to light touch throughout the extremity is intact, dorsal pedis pulses 2+. - Labs CBC & Chem 7: 07/02/24 16:59 Labs: Abnormal Lab Results - Last 24 Hours (Table) 07/02/24 07/02/24 07/02/24 Range/Units 09:05 16:45 16:59 WBC 13.0 H (3.8-10.6) k/uL Neutrophils # 11.2 H (1.3-7.7) k/uL POC Glucose (mg/dL) 111 H 157 H (70-110) mg/dL 07/02/24 07/03/24 Range/Units 20:21 06:46 WBC (3.8-10.6) k/uL Neutrophils # (1.3-7.7) k/uL POC Glucose (mg/dL) 287 H 120 H (70-110) mg/dL Assessment and Plan Assessment: 1. Left rotator cuff arthropathy -Postop day 1 status post reverse left total shoulder arthroplasty Plan: 1. Left rotator cuff arthropathy -surgery performed yesterday, Friday, 4reverse left total shoulder arthroplasty. Patient stable bedside this morning with sling present to left upper extremity. Remain nonweightbearing to left upper extremity. Okay to perform gentle range of motion exercises left elbow and left wrist. Plan for discharge home today. 2, appreciate medical management 3. Pain management -[place] 4. DVT prophylaxis -Plavix and Eliquis 5. GI prophylaxis -senna 6. PT/OT -remain nonweightbearing to left upper extremity. Okay to perform gentle range of motion exercises left elbow and left wrist 7. Encourage incentive spirometer use 8. Discharge planning -discharge home today Time with Patient: Less than 30
[2024-07-03 11:24] LABS: Basophils # (A) 0.04 X 10*3/uL (0.00-0.10); Basophils % (A) 0.4 %; Eosinophils # (A) 0.01 X 10*3/uL (0.04-0.35); Eosinophils % (A) 0.1 %; HCT 35.2 % (37.2-46.3); Lymphocytes # (A) 2.09 X 10*3/uL (0.90-5.00); Lymphocytes % (A) 19.8 %; MCH 29.2 pg (27.0-32.0); MCHC 31.3 g/dL (32.0-37.0); MCV 93.4 FL (80.0-97.0); Mean Platelet Volume 10.7 FL (9.5-12.2); Monocytes # (A) 0.72 X 10*3/uL (0.20-1.00); Monocytes % (A) 6.8 %; NRBC Per 100 WBC 0 X 10*3/uL (0.00-0.01); Neutrophils # (A) 7.67 X 10*3/uL (1.80-7.70); Neutrophils % (A) 72.6 %; Platelet Count 225 X 10*3/uL (140-440); RBC 3.77 X 10*6/uL (4.10-5.20); RDW 14.1 % (11.5-14.5); WBC 10.56 X 10*3/uL (4.50-10.00)
[2024-07-03 11:25] LABS: BUN/Creat Ratio 17.91 Ratio (12.00-20.00); Blood Urea Nitrogen 19.7 mg/dL (9.0-27.0); Calcium 8.9 mg/dL (8.7-10.3); Carbon Dioxide 23.3 mmol/L (21.6-31.8); Chloride 105 mmol/L (96-109); Glucose 121 mg/dL (70-110); Sodium 140 mmol/L (135-145)
--- NOTE | 2024-07-03 11:56 | P.PN ---
Subjective Progress Note Date: 07/03/24 Subjective: Patient seen and examined at the bedside. No acute events overnight. Postop day 1 All Systems reviewed and pertinent positives and negatives noted in HPI, all other symptoms are negative Objective: Vital signs reviewed. General: non toxic, no distress, appears at stated age, normal weight Derm: no unusual rashes/lesions, warm, surgical site clean and intact Head: atraumatic, normocephalic, symmetric Eyes: EOMI, no lid lag, anicteric sclera, pupils equal round reactive to light ENT: Nose and ears atraumatic Neck: No cervical lymphadenopathy, trachea midline, supple Mouth: no lip lesion, mucus membranes moist Cardiovascular: S1S2 irregular, no murmur, positive dorsalis pedis pulse bilateral, no edema Lungs: CTA bilateral, no rhonchi, no rales, no accessory muscle use Abdominal: soft, nontender to palpation, no guarding Ext: Left shoulder is stabilized with brace, rest of the extremities have more strength 5 out of 5 with sensations intact Neuro: CN II-XI grossly intact, no gross focal neuro deficits Psych: Alert, oriented, appropriate affect Data reviewed today: Labs: WBC 10.5, hemoglobin 11.0, platelet count 225, sodium 140, potassium 5.0, creatinine 1.1, glucose 121, hemoglobin 7.1 Images: No new imaging Assessment and Plan: Patient is a 68-year-old female with a PMH of A-fib on Eliquis, CVA, left carotid artery status post stent on aspirin and Plavix, type 2 diabetes, GERD, hyperlipidemia, hypertension who has been endorsing left shoulder pain for the last 3 to 4 months had undergone left reverse total shoulder arthroplasty on 07/02/2024. Postop day 1 #Left shoulder pain status post left reverse total shoulder arthroplasty Leukocytosis, anticipated outcome of surgery Acute blood loss anemia, anticipated outcome of surgery No intraoperative complication Management including pain control per orthopedic #Type 2 diabetes mellitus Glucose 157 HbA1c 7.1 Accu-Cheks and sliding scale insulin Levemir 30 units subcu daily Continue monitor for hypoglycemia Outpatient follow-up for diabetes management Chronic conditions: Hypertension: Resume valsartan 320 mg p.o. daily and amlodipine 5 mg p.o. daily Chronic A-fib: Resume Eliquis 2.5 mg p.o. twice daily, carvedilol 12.5 mg p.o. twice daily Left internal carotid artery stenosis status post stent: Hold aspirin 81 mg p.o. daily and continue Plavix 75 mg p.o. daily Patient ideally should not be on triple anticoagulation therapy. Patient to continue with Plavix 75 mg p.o. daily and Eliquis as above, aspirin has been discontinued Discussed with patient and has been advised to follow-up with PCP and cardiology GERD: Resume Protonix 40 mg p.o. daily Anxiety/depression: Resume Zoloft 100 mg p.o. daily Monitor with CBC and BMP DVT prophylaxis: Eliquis 2.5 mg p.o. twice daily GI prophylaxis: Protonix 40 mg p.o. daily Patient is medically optimized from internal medicine standpoint to be discharged today. Thank you for allowing us to participate in the care of this pleasant patient. Do not hesitate to contact us with questions. Someone can be reached from the [facility] hospitalist group all hours of the day at [phone] or via [employer]. I have seen and evaluated the patient today. Discussed with the resident and agree with the residents finding and plan as documented in the resident's note. Changes highlighted in blue font. Objective - Vital Signs Vital signs: Vital Signs Temp 98.2 F 07/03/24 07:20 Pulse 80 07/03/24 07:20 Resp 17 07/03/24 07:20 BP 109/63 07/03/24 07:20 Pulse Ox 97 07/03/24 07:20 FiO2 Intake & Output 07/02/24 07/03/24 07/03/24 18:59 06:59 18:59 Intake Total 3750 Output Total 150 Balance 3600 Weight 94.4 kg Intake: IV 3750 Output: Estimated Blood Loss 150 Other: Voiding Method Toilet Toilet # Voids 1 2 - Labs CBC & Chem 7: 07/03/24 04:14 07/03/24 04:14 Labs: Abnormal Lab Results - Last 24 Hours (Table) 07/02/24 07/02/24 07/02/24 Range/Units 16:45 16:59 20:21 WBC 13.0 H (3.8-10.6) k/uL RBC (4.10-5.20) X 10*6/uL Hgb (12.0-15.0) g/dL Hct (37.2-46.3) % MCHC (32.0-37.0) g/dL Neutrophils # 11.2 H (1.3-7.7) k/uL Eosinophils # (0.04-0.35) X 10*3/uL Est GFR (CKD-EPI) (>=60) Glucose (70-110) mg/dL POC Glucose (mg/dL) 157 H 287 H (70-110) mg/dL Hemoglobin A1c (<=6.0) % 07/03/24 07/03/24 07/03/24 Range/Units 04:14 04:14 04:14 WBC 10.56 H (3.8-10.6) k/uL RBC 3.77 L (4.10-5.20) X 10*6/uL Hgb 11.0 L (12.0-15.0) g/dL Hct 35.2 L (37.2-46.3) % MCHC 31.3 L (32.0-37.0) g/dL Neutrophils # (1.3-7.7) k/uL Eosinophils # 0.01 L (0.04-0.35) X 10*3/uL Est GFR (CKD-EPI) 54 L (>=60) Glucose 121 H (70-110) mg/dL POC Glucose (mg/dL) (70-110) mg/dL Hemoglobin A1c 7.1 H (<=6.0) % 07/03/24 Range/Units 06:46 WBC (3.8-10.6) k/uL RBC (4.10-5.20) X 10*6/uL Hgb (12.0-15.0) g/dL Hct (37.2-46.3) % MCHC (32.0-37.0) g/dL Neutrophils # (1.3-7.7) k/uL Eosinophils # (0.04-0.35) X 10*3/uL Est GFR (CKD-EPI) (>=60) Glucose (70-110) mg/dL POC Glucose (mg/dL) 120 H (70-110) mg/dL Hemoglobin A1c (<=6.0) %
== END 2024-07-03 10:53 | disposition home or self-care (01) ==
LOC: OR 07:58 → 4SSUR 14:07 → OR 07-03 10:53
PROVIDERS: ATTEND Orthopaedic Surgery
DX: M75.102 Unspecified rotator cuff tear or rupture of left shoulder, not specified as traumatic (principal); K21.9 Gastro-esophageal reflux disease without esophagitis; I48.20 Chronic atrial fibrillation, unspecified; I25.2 Old myocardial infarction; I10 Essential (primary) hypertension; I65.22 Occlusion and stenosis of left carotid artery; G89.18 Other acute postprocedural pain; G40.909 Epilepsy, unspecified, not intractable, without status epilepticus; F41.8 Other specified anxiety disorders; E11.9 Type 2 diabetes mellitus without complications; E78.5 Hyperlipidemia, unspecified; Z79.01 Long term (current) use of anticoagulants; Z79.02 Long term (current) use of antithrombotics/antiplatelets; Z79.4 Long term (current) use of insulin; Z79.82 Long term (current) use of aspirin; Z79.84 Long term (current) use of oral hypoglycemic drugs; Z79.899 Other long term (current) drug therapy; Z86.73 Personal history of transient ischemic attack (TIA), and cerebral infarction without residual deficits; Z87.891 Personal history of nicotine dependence; Z98.51 Tubal ligation status
CPT/HCPCS: 80048; 85025 ×2; 83036; 73020; 23472; 64415; J2250; J1100; J0690 ×2; J2405; J1171